=== PATIENT | female | born 1960 | race Caucasian/White ===

== ENCOUNTER 2025-06-16 10:26 | Inpatient (IN) | payer MEDICARE, SELFPAY ==
[2025-06-16] VITALS (20 sets, daily range): BP systolic 115–167; BP diastolic 51–96; PULSE 88–112; RESP 13–25; TEMP 36.6–36.9; O2SAT 90–98; BMI 29.5
--- NOTE | 2025-06-16 | PATH_ITS ---
[facility] Accession Number: [id number] No. of containers..01 Tissue . 01 Material submitted: . appendix - APPENDIX, APPENDECTOMY . 01 Diagnosis: APPENDIX, APPENDECTOMY: Acute suppurative appendicitis with perforation. No dysplasia or malignancy identified. [facility] 06/25/20251508 Local . 01 Electronically signed: . Hong Waldron MD, Pathologist NPI- [id number] . 01 Gross description: . Received in formalin with two patient identifiers, and appendix is a 6.5 cm long by 1.3 cm diameter, focally disrupted appendix. The stapled proximal margin is inked blue. The serosa is red-brown, dusky and hemorrhagic with scattered exudate. There is a 0.8 x 0.5 cm transmural defect (inked orange), 2 cm from the proximal margin. The wall is red-billingsley, hemorrhagic, and 0.3-0.6 cm thick. A discrete mass is not grossly identified. Fecaliths are not grossly identified. Portable Irrigation Operator sections to include en face margin, defect, and bisected tip are submitted in A1. ([id number]) /MRV 06/25/20251508 Local . 01 Pathologist provided ICD-10: K35.80 . 01 CPT . 771288 Specimen Comment: A courtesy copy of this report has been sent to [facility] Performed at: [address] [address], [place], [place] [id number] MD Hong Waldron MD Phone: [phone]
--- NOTE | 2025-06-16 11:54 | ED_ITS ---
HPI - Abdominal Pain General Chief Complaint: Abdominal Pain Stated Complaint: Flu, no bowel movements 5 days, [facility] Time Seen by Provider: 06/16/25 11:24 Source: patient Mode of arrival: Ambulatory History of Present Illness HPI narrative: This is a 65-year-old female presents emergency department due to nausea, vomiting, constipation for the last 5 days. States that initially 5 days ago she had an acute episode of vomiting as well as some intermittent fevers and chills. Since then she has noticed significant abdominal bloating and has not been able to have a bowel movement. She reports some nausea but is now able to take small amounts of p.o. fluids and food. Denies any fevers. Denies any abdominal surgeries. States that she is in no acute point tenderness but does report she feels generally distended and uncomfortable. Reports history of hypertension. Last ate yesterday evening. Related Data Allergies Allergy/AdvReac Type Severity Reaction Status Date / Time No Known Drug Allergies Allergy Verified 06/16/25 10:57 Review of Systems Review of Systems Narrative: GENERAL: Denies chills, fatigue, malaise, fever, sweats. HEENT: Denies sinus pain, ear pain, sore throat, difficulty swallowing, dizziness. RESPIRATORY: Denies dyspnea, cough, wheezing, hemoptysis, sputum. CARDIOVASCULAR: Denies chest pain, palpitations, orthopnea, edema, GASTROINTESTINAL: Reports nausea, vomiting, constipation, abdominal distention : Denies dysuria, frequency, incontinence, hematuria, urinary retention. MUSCULOSKELETAL: denies weakness, joint pain, or bony pain SKIN: Denies rash, skin lesions, or other NEUROLOGIC: Denies weakness, headache, numbness, change in speech, confusion, seizures, incoordination. PSYCHIATRIC: No concerning psychosocial issues. 12 point review of systems is negative except for those stated above Patient History Smoking Status: Never smoker Alcohol type: wine Exam Narrative Exam Narrative: GENERAL: Well-developed patient, in mild distress. HEAD: Atraumatic. Normocephalic. EYES: Pupils equal round and reactive. Extraocular motions intact. No scleral icterus. No injection or drainage. ENT: Nose without bleeding, purulent drainage. Throat without erythema, tonsillar hypertrophy or exudate. Airway patent. NECK: Trachea midline. Non tender EXTREMITIES: No edema or joint tenderness. NEURO: AOx3. SKIN: No rash or erythema of visible areas Abdomen: Generally distended, no significant point tenderness Initial Vital Signs Initial Vital Signs: Vital Signs Temperature 98 F 06/16/25 10:56 Pulse Rate 112 H 06/16/25 10:56 Respiratory Rate 20 06/16/25 10:56 Blood Pressure 167/96 H 06/16/25 10:56 Pulse Oximetry 97 06/16/25 10:56 Oxygen Delivery Method Room Air 06/16/25 10:56 Course Orders Ordered: ED Orders 06/16/25 11:30 Blood Culture Stat CBC Auto Diff [Complete Blood Count AUTO DIFF] Stat CMP [Comprehensive Metabolic Panel] Stat Lactate (Lactic Acid) Stat Procalcitonin Stat 06/16/25 12:04 CT abdomen pelvis w con Stat Discontinued Medications Piperacillin Sod/Tazobactam (Sod 4.5 gm/ Sodium Chloride) 100 mls @ 200 mls/hr IV NOW ONE Stop: 06/16/25 12:45 Vital Signs Vital signs: Vital Signs - 8 hr 06/16/25 10:56 Temperature 98 F Pulse Rate 112 H Respiratory Rate 20 Blood Pressure 167/96 H Pulse Oximetry 97 Oxygen Delivery Method Room Air MDM - Abdominal Pain Lab Data 06/16/25 11:30 06/16/25 11:30 Labs: Lab Results 06/16/25 Range/Units 11:30 WBC 13.0 H (4.5-11.0) X10^3/uL RBC 5.19 (4.0-5.2) X10^6/uL Hgb 17.1 H (12.0-16.0) g/dL Hct 49.6 H (36-46) % MCV 95.5 (80-100) fL MCH 32.9 (26-34) PG MCHC 34.5 (30-36) % RDW 12.5 (11.6-14.8) % Plt Count 344 (150-400) X10^3/uL Neut % (Auto) 80.1 H (50-75) % Lymph % (Auto) 9.3 L (25-40) % [place] % (Auto) 9.7 (3-14) % Eos % (Auto) 0.6 L (2-4) % Baso % (Auto) 0.3 (0-2) % Neut # (Auto) 02563 H (8560-2938) /uL Lymph # (Auto) 1200 (8827-4228) /uL [place] # (Auto) 1300 H (0-900) /uL Eos # (Auto) 100 (0-450) /uL Baso # (Auto) 0 (0-100) /uL Sodium 138 (137-145) mmol/L Potassium 3.6 (3.4-5.1) mmol/L Chloride 100 (98-107) mmol/L Carbon Dioxide 22 (22-32) mmol/L BUN 26 H (7-17) mg/dL Creatinine 0.82 (0.52-1.04) mg/dL Estimated GFR > 60 (>60) mL/min BUN/Creatinine Ratio 31.7 H (6-22) Glucose 118 H (70-99) mg/dL Lactate 1.2 (0.7-2.1) mmol/L Calcium 9.8 (8.4-10.2) mg/dL Total Bilirubin 1.0 (0.2-1.3) mg/dL AST 15 (14-36) IU/L ALT 14 (<35) IU/L Alkaline Phosphatase 88 (38-126) U/L Total Protein 7.8 (6.3-8.2) g/dL Albumin 4.2 (3.5-5.0) g/dL Globulin 3.6 (1.7-4.1) g/dL Albumin/Globulin Ratio 1.2 (1.0-2.8) Procalcitonin 0.261 (<0.5) ng/mL Imaging Data CT scan - abdomen/pelvis: Radiologist's Impression: [address] [address] [address] Scan Report Signed Patient: Tran Frances MR#: [id number] : 1960 Acct:[id number] Age/Sex: 65 / F Date of Service: 06/16/25 Loc: ED Accession Number: [id number] Procedure: CT abdomen pelvis w con Ordering Provider: Rashid Cruz PA-C PROCEDURE: CT ABDOMEN PELVIS W CON INDICATIONS: possible obstruction, abd pain, bloating TECHNIQUE: After the administration of intravenous contrast, axial sections acquired from the lung bases to the pubic symphysis. Coronal and sagittal reformats were performed. For radiation dose reduction, the following was used: automated exposure control, adjustment of mA and/or kV according to patient size. COMPARISON: None. FINDINGS: Image quality: Diagnostic. Lower Chest: Right basilar atelectasis is seen. Heart size is normal, no pericardial effusion. ABDOMEN: Liver: No solid mass. Suggestion of tiny cysts in anterior periphery of left hepatic lobe. Gallbladder: Numerous calcified stones are noted in dependent portion of gallbladder lumen. No gallbladder wall thickening. Biliary ducts: No biliary dilation. Pancreas: No ductal dilation. Spleen: Size is within normal limits. Adrenal Glands: No adrenal nodules. Kidneys and Ureters: No hydronephrosis. No solid mass. No complex renal cystic lesion which requires follow up. Stomach and Bowel: Significant mesenteric fat stranding involving right lower quadrant abdomen is seen. There is wall thickening involving terminal ileum and proximal ascending colon. No normal appearing appendix is visualized. There is extra luminal air and fluid collection seen in right lower quadrant measures up to 7.1 x 2.8 x 4 cm in size series 2, image 87 and series 4, image 116. No other area of abnormal bowel wall thickening. Peritoneum: No abnormal intraperitoneal fluid. No peritoneal free air. Ventral Wall: No significant ventral hernia. Abdominal Nodes: No retroperitoneal or mesenteric adenopathy by size criteria. Vessels: Aorta and inferior vena cava are normal in size. PELVIS: Pelvic Organs: Markedly bulky appearing uterus with lobulated contour and heterogeneous enhancement. Internal calcifications also noted. Finding is consistent with calcified uterine fibroids. Bladder: No bladder wall thickening, accounting for underdistention. Pelvic Nodes: No enlarged lymph nodes. Miscellaneous: No inguinal hernias are seen. Bones: No aggressive osseous abnormality. IMPRESSION: 1. Finding is suggestive of perforated acute appendicitis with developing abscess collection in right lower quadrant abdomen as described above. The abscess collection is surrounded by adjacent bowel loops and is not easily assessable. 2. No other area of abnormal bowel wall thickening. Mild fluid distension of small bowel loops concerning for low-grade ileus. No peritoneal free fluid or free air. 3. No obstructing renal stones or hydronephrosis. 4. Cholelithiasis without CT evidence of acute cholecystitis. 5. Large myomatous uterus. Findings were reported to ordering ER physician at the time of dictation. Dictated by: Steve Garcia M.D. on 06/16/2025 at 12:32 Approved by: Steve Garcia M.D. on 06/16/2025 at 12:43 [facility] Narrative Medical decision making narrative: ED course: This is a 65-year-old female presenting to the emergency department due to abdominal pain as well as nausea and vomiting for the last [address] scan showed findings suggestive of perforated acute appendicitis. Patient is given Zosyn. Blood cultures were obtained. White count 13. Dr. Graff of General surgery was contacted and he will arrange for surgery. Patient will be admitted under General surgery. Assistance very much appreciated. CC: Abdominal pain Complicating co-morbidities: Hypertension Data collected from: Previous notes Medical records reviewed: patient was seen in the walk-in clinic just prior to arrival with severe abdominal pain for the last 4 days with no bowel movement x5 days. As well as intractable nausea and vomiting x4 days. Differential considered, but not limited to: Appendicitis, cholelithiasis Exam documented above, pertinent findings include: Abdominal distention Lab Test results independently reviewed as above. Pertinent findings: White count of 13.0 Imaging studies independently reviewed: CT showed evidence of perforated appendicitis Scores Used: None MIPS Elements: None Consultations: None Treatments: Zosyn Re-evaluations: None Discussion: Discussed plan with the patient was comfortable with the plan Diagnosis: Acute appendicitis Disposition: see below, along with detailed discharge instructions that have been reviewed with patient as well as indications for ED re-evaluation and additional outpatient follow up Discharge Plan Departure Patient Disposition: Admitted to Surgery Clinical Impression: Acute appendicitis
--- NOTE | 2025-06-16 12:04 | DI.CT.S_ITS ---
PROCEDURE: CT ABDOMEN PELVIS W CON INDICATIONS: possible obstruction, abd pain, bloating TECHNIQUE: After the administration of intravenous contrast, axial sections acquired from the lung bases to the pubic symphysis. Coronal and sagittal reformats were performed. For radiation dose reduction, the following was used: automated exposure control, adjustment of mA and/or kV according to patient size. COMPARISON: None. FINDINGS: Image quality: Diagnostic. Lower Chest: Right basilar atelectasis is seen. Heart size is normal, no pericardial effusion. ABDOMEN: Liver: No solid mass. Suggestion of tiny cysts in anterior periphery of left hepatic lobe. Gallbladder: Numerous calcified stones are noted in dependent portion of gallbladder lumen. No gallbladder wall thickening. Biliary ducts: No biliary dilation. Pancreas: No ductal dilation. Spleen: Size is within normal limits. Adrenal Glands: No adrenal nodules. Kidneys and Ureters: No hydronephrosis. No solid mass. No complex renal cystic lesion which requires follow up. Stomach and Bowel: Significant mesenteric fat stranding involving right lower quadrant abdomen is seen. There is wall thickening involving terminal ileum and proximal ascending colon. No normal appearing appendix is visualized. There is extra luminal air and fluid collection seen in right lower quadrant measures up to 7.1 x 2.8 x 4 cm in size series 2, image 87 and series 4, image 116. No other area of abnormal bowel wall thickening. Peritoneum: No abnormal intraperitoneal fluid. No peritoneal free air. Ventral Wall: No significant ventral hernia. Abdominal Nodes: No retroperitoneal or mesenteric adenopathy by size criteria. Vessels: Aorta and inferior vena cava are normal in size. PELVIS: Pelvic Organs: Markedly bulky appearing uterus with lobulated contour and heterogeneous enhancement. Internal calcifications also noted. Finding is consistent with calcified uterine fibroids. Bladder: No bladder wall thickening, accounting for underdistention. Pelvic Nodes: No enlarged lymph nodes. Miscellaneous: No inguinal hernias are seen. Bones: No aggressive osseous abnormality. IMPRESSION: 1. Finding is suggestive of perforated acute appendicitis with developing abscess collection in right lower quadrant abdomen as described above. The abscess collection is surrounded by adjacent bowel loops and is not easily assessable. 2. No other area of abnormal bowel wall thickening. Mild fluid distension of small bowel loops concerning for low-grade ileus. No peritoneal free fluid or free air. 3. No obstructing renal stones or hydronephrosis. 4. Cholelithiasis without CT evidence of acute cholecystitis. 5. Large myomatous uterus. Findings were reported to ordering ER physician at the time of dictation. Dictated by: Steve Garcia M.D. on 06/16/2025 at 12:32 Approved by: Steve Garcia M.D. on 06/16/2025 at 12:43
[2025-06-16 12:06] LABS: Add Manual Diff / Slide Review NO; Hematocrit 49.6 % (36-46); Hemoglobin 17.1 g/dL (12.0-16.0); Lymphocytes Absolute Auto 1200 /uL (1100-4500); Mean Corpuscular HGB Conc 34.5 % (30-36); Mean Corpuscular Hemoglobin 32.9 PG (26-34); Mean Corpuscular Volume 95.5 fL (80-100); Platelet Count 344 X10^3/uL (150-400)
[2025-06-16 12:09] LABS: Lactate (Lactic Acid) 1.2 mmol/L (0.7-2.1)
[2025-06-16 12:10] LABS: Alanine Aminotransferase 14 IU/L (<35); Albumin 4.2 g/dL (3.5-5.0); Albumin Globulin Ratio 1.2 (1.0-2.8); Alkaline Phosphatase 88 U/L (38-126); Blood Urea Nitrogen 26 mg/dL (7-17); Calcium 9.8 mg/dL (8.4-10.2); Carbon Dioxide 22 mmol/L (22-32); Chloride 100 mmol/L (98-107); Estimated Glomerular Filt Rate > 60 mL/min (>60); Globulin 3.6 g/dL (1.7-4.1); Glucose 118 mg/dL (70-99); HEMOLYSIS < 15 (0-50); Potassium 3.6 mmol/L (3.4-5.1); Sodium 138 mmol/L (137-145); Total Protein 7.8 g/dL (6.3-8.2)
[2025-06-16 12:27] LABS: Procalcitonin 0.261 ng/mL (<0.5)
--- NOTE | 2025-06-16 13:08 | P.HP_ITS ---
History of Present Illness History of Present Illness Date Patient Seen: 06/16/25 Time Patient Seen: 13:08 Chief complaint: Flu, no bowel movements 5 days, [facility] Narrative: Patient being admitted from the emergency room with perforated appendicitis. CT scan demonstrates appendiceal perforation with abscess. WBC 13. Symptoms started on Saturday. Patient had recent hip and knee replacement surgery. She was started on IV Zosyn in the emergency room. Lapar[facility] She and her are visiting from [place]. [facility] Social History Smoking Status: Never smoker Meds Home Medications and Allergies Allergies Allergy/AdvReac Type Severity Reaction Status Date / Time No Known Drug Allergies Allergy Verified 06/16/25 10:57 Exam Vital Signs (past 8 hours): - 06/16/25 10:56 Temperature 98 F Pulse Rate 112 H Respiratory Rate 20 Blood Pressure 167/96 H Pulse Oximetry 97 Oxygen Delivery Method Room Air Oxygen Delivery Method Room Air Narrative Exam Narrative: Const General: healthy appearing, comfortable and no acute distress Orientation: alert and oriented x3 HENMT Ears: hearing grossly normal bilaterally Eyes Visual Escobar: normal visual escobar by confrontation Conjunctivae: conjunctivae normal Sclera: sclerae normal EOM: EOM intact bilaterally Resp Effort & Inspection: normal respiratory effort and able to speak in complete sentences Cardio Rate: regular rate GI Palpation: soft (NT) Extrem General: no pedal edema and no calf tenderness Objective Labs 06/16/25 11:30 06/16/25 11:30 Labs: Laboratory Results - last 24 hr 06/16/25 11:30 WBC 13.0 H RBC 5.19 Hgb 17.1 H Hct 49.6 H MCV 95.5 MCH 32.9 MCHC 34.5 RDW 12.5 Plt Count 344 Neut % (Auto) 80.1 H Lymph % (Auto) 9.3 L [place] % (Auto) 9.7 Eos % (Auto) 0.6 L Baso % (Auto) 0.3 Neut # (Auto) 01229 H Lymph # (Auto) 1200 [place] # (Auto) 1300 H Eos # (Auto) 100 Baso # (Auto) 0 Sodium 138 Potassium 3.6 Chloride 100 Carbon Dioxide 22 BUN 26 H Creatinine 0.82 Estimated GFR > 60 BUN/Creatinine Ratio 31.7 H Glucose 118 H Lactate 1.2 Calcium 9.8 Total Bilirubin 1.0 AST 15 ALT 14 Alkaline Phosphatase 88 Total Protein 7.8 Albumin 4.2 Globulin 3.6 Albumin/Globulin Ratio 1.2 Procalcitonin 0.261 Assessment & Plan Assessment and plan (1) Perforated appendicitis: Status: Acute Plan Plan laparoscopic appendectomy. Possible open. Drain likely. The risks, benefits and options regarding the procedure were explained to the patient in detail. Risk discussion included but not limited to: bleeding, perforation, drain, abscess, open incision, colectomy. The patient was encouraged to ask questions and they were answered to their satisfaction. The patient understands and is agreeable to proceed. Time-Based Coding :: [TOTAL MINUTES] spent with patient and on the chart (including review of chart, obtaining history, exam, reviewing outside data, placing orders, documenting exam and treatment plan, and counseling patient) on [DATE]. 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
[2025-06-16] MEDS: SODIUM CHLORIDE 0.9% 500 ML 1000 ML IV (13:11)
[2025-06-16] MEDS: PIPERACILLIN/TAZO 4.5 GM in SODIUM CHLORIDE 0.9% 100 ML IV (13:11)
[2025-06-16 13:37] LABS: Culture Indicated Urine Specimen Cultured
--- NOTE | 2025-06-16 14:20 | PC.NURSE ---
Pt left for OR, report given to HYDROGENATION OPERATOR & Chava @ [facility] # [phone]
--- NOTE | 2025-06-16 15:39 | SUR.OPER ---
Supine on padded OR bed, head on pillow, left arm padded and tucked at side, right arm on armboard, legs uncrossed, safety belt at thigh, tape over blanket over lower legs .
--- NOTE | 2025-06-16 16:40 | SUR.OPER ---
Supine on padded OR bed, head on pillow, right arm padded and tucked at side, left arm out on armboard legs uncrossed, safety belt at thigh, tape over blanket over lower legs .
--- NOTE | 2025-06-16 17:15 | PM.OP.1 ---
Operative Date/Time/Diagnoses Date of procedure: 06/16/25 Time of procedure: 17:16 Pre-op diagnosis: Perforated appendicitis with abscess Post-op diagnosis: same Procedure & Clinicians Procedure: Laparoscopic appendectomy with drain Same procedure(s) as scheduled: Yes Indications: 65yo F, presented to ED, CT demonstrated perforated appendicitis with abscess. Patient had recent hip and knee replacement. She desired operative management over IR drain and delayed appendectomy to reduce risk to her hardware. Surgeon: Narendra Graff Assisted?: Yes Data Analysis Intern: Irving Avila Anesthesia Type: General Operative Notes Findings: Perforation in mid appendix with abscess cavity beneath ileal mesentery. Incidental note of extensive uterine fibroids and a large right ovarian cyst. Closure Type: primary Specimen(s): other (appendix) Applied: drain(s) Estimated Blood Loss (mL): 10 Blood products transfused: none Procedure in detail: After informed consent and satisfactory general endotracheal anesthesia, the abdomen was prepped and draped in the usual sterile manner. The patient received appropriate preoperative antibiotics and DVT prophylaxis. Surgical time-out was performed with all team members in agreement. The pneumoperitoneum was established to a pressure of 15 mmHg with carbon dioxide gas using the Astudillo direct trocar cutdown technique via an infraumbilical incision. An 0 Vicryl yzruln-cj-[id number] suture was placed in the umbilical fascia. The 5 mm 30 degree lens was inserted and no trauma secondary to the trocar insertion was noted. We then placed a suprapubic and left lower quadrant 5 mm trocar under direct vision. Due to distended bowel we had to place an additional 5 mm trocar in the right lower quadrant to aid dissection. Incidental note was made of extensive uterine fibroids and a large right ovarian cyst. The small bowel was extensively dilated and an orogastric tube was placed per anesthesia. The terminal ileum was adherent to the inflammatory process in the right lower quadrant but we were able to bluntly mobilize this medially and in doing so entered the abscess cavity which produced copious amount of green purulence. This was all suctioned dry. The appendix was noted to be ruptured in the midportion and a large fecalith was removed with the laparoscopic spoon. We were able to mobilize the appendix bluntly and then control the mesoappendix with the LigaSure cautery device with excellent hemostasis. The base of the appendix was uninvolved and it was controlled using a laparoscopic LANDRY stapler using a blue load and this controlled the base of the appendix with confidence. We then irrigated the abscess cavity with copious amounts of sterile saline solution and this was suctioned dry. I brought a 15 [place] Junaid channel drain through the suprapubic incision and coursed this into the abscess cavity and into the pelvis. This was secured to the skin with a 2-0 nylon. The appendix had been placed into an endo-pouch and removed. The trocars were removed and there was no bleeding noted at the trocar sites. The pneumoperitoneum was released. The 0 Vicryl gpdwyb-sk-cenoh suture was tied in the umbilical fascia. The local was 60 cc of 0.25% Marcaine with epinephrine. We performed bilateral TAP blocks injecting 25 cc into the transversus abdominis musculature bilaterally. We used the remainder of the local in the skin and subcutaneous tissues for a total 60 cc. A drain dressing was applied to the drain exit site. The skin incisions were closed using 4-0 Monocryl in a subcuticular manner. Dermabond glue was applied as a final dressing. The estimated blood loss was minimal. The instrument sponge and needle counts were all correct x2. The patient tolerated the procedure well was extubated in the operating room and transported to the recovery area in stable condition. Complications: none Post-operative Condition: stable Disposition: PACU Plan for aftercare: PACU then floor
[2025-06-16] MEDS: BUPivacaine 0.25% W/ EPI (PF) 30 ML VIAL 60 ML INJ (17:19)
[2025-06-16] MEDS: ONDANSETRON 4 MG/2 ML INJ IV ×2 (17:40→23:49)
--- NOTE | 2025-06-16 19:05 | PC.NURSE ---
Patient is alert and oriented x4, admitted for lap appe, given dilaudid down in pacu. Up to floor. Pain with movement but otherwise has been fine. Resting comfortably. Will be due for pain medications soon.
[2025-06-16] MEDS: PIPERACILLIN/TAZO 3.375 GM in SODIUM CHLORIDE 0.9% 100 ML IV (19:49)
[2025-06-16] MEDS: LACTATED RINGERS 1,000 ML 150 ML IV ×2 (20:10→23:31)
[2025-06-16] MEDS: HEPARIN 5,000 UNIT/ML VIAL 5000 UNIT SUBCUT (21:16)
[2025-06-16] MEDS: MELATONIN 3 MG TABLET 18 MG PO (22:39)
[2025-06-16] MEDS: PANTOPRAZOLE 40 MG VIAL IV (23:49)
[2025-06-17] MEDS: PIPERACILLIN/TAZO 3.375 GM in SODIUM CHLORIDE 0.9% 100 ML IV ×3 (04:23→20:26)
[2025-06-17 05:39] VITALS: O2SAT 92
[2025-06-17] MEDS: LACTATED RINGERS 1,000 ML 150 ML IV ×3 (06:43→19:16)
[2025-06-17] MEDS: ONDANSETRON 4 MG/2 ML INJ IV ×2 (06:57→22:24)
--- NOTE | 2025-06-17 07:16 | P.PN_ITS ---
Subjective Subjective Date Patient Seen: 06/17/25 Time Patient Seen: 07:16 Interval history: Emesis last night, small bowel dilated at surgery, ileus secondary to perf appy Exam Vital Signs (past 8 hours): - 06/17/25 05:39 Pulse Oximetry 92 Oxygen Delivery Method Nasal Cannula Oxygen Flow Rate 2 Fraction of Inspired Oxygen 28 Fraction of Inspired Oxygen 28 SaO2/FiO2 Ratio 328 Oxygen Delivery Method Nasal Cannula Oxygen Flow Rate 2 Narrative Exam Narrative: ABD: distended, +tympany, drain purulent as expected, tenderness appropriate for postop Objective Labs 06/16/25 11:30 06/16/25 11:30 Labs: Laboratory Results - last 24 hr 06/16/25 06/16/25 11:30 13:18 WBC 13.0 H RBC 5.19 Hgb 17.1 H Hct 49.6 H MCV 95.5 MCH 32.9 MCHC 34.5 RDW 12.5 Plt Count 344 Neut % (Auto) 80.1 H Lymph % (Auto) 9.3 L Donley % (Auto) 9.7 Eos % (Auto) 0.6 L Baso % (Auto) 0.3 Neut # (Auto) 33364 H Lymph # (Auto) 1200 Donley # (Auto) 1300 H Eos # (Auto) 100 Baso # (Auto) 0 Sodium 138 Potassium 3.6 Chloride 100 Carbon Dioxide 22 BUN 26 H Creatinine 0.82 Estimated GFR > 60 BUN/Creatinine Ratio 31.7 H Glucose 118 H Lactate 1.2 Calcium 9.8 Total Bilirubin 1.0 AST 15 ALT 14 Alkaline Phosphatase 88 Total Protein 7.8 Albumin 4.2 Globulin 3.6 Albumin/Globulin Ratio 1.2 Procalcitonin 0.261 Urine RBC 0-1/hpf Urine WBC 1-5/hpf Ur Squamous Epith Cells 1-5 /hpf Urine Bacteria None seen Hyaline Casts 1-5/lpf Urine Mucus 2+ H Ur Culture Indicated? Specimen cultured Vol Urine Centrifuged 10ml (spun) PFSH Social History household members: spouse Smoking Status: Never smoker alcohol intake: current Assessment & Plan Assessment and plan (1) Perforated appendicitis: Status: Acute (2) Intra-abdominal abscess: Status: Acute Plan POD#1 lap appy, known perforation, drain placed in abscess Continue IV abx, drain Ileus, try mylicon, may need NGT if emesis Time-Based Coding :: [TOTAL MINUTES] spent with patient and on the chart (including review of chart, obtaining history, exam, reviewing outside data, placing orders, documenting exam and treatment plan, and counseling patient) on [DATE]. Quality VTE Deep Vein Thrombosis/Pulmonary Embolism Present on Admission: No IH PROFEE Salsa Dance Instructor Document charge(s): Yes Charge Codes Subsequent inpatient/observation care: [id number]
[2025-06-17 08:04] VITALS: BP 145/80; PULSE 83; RESP 17; TEMP 37.3; O2SAT 96
[2025-06-17] MEDS: LOSARTAN 50 MG TABLET PO (08:33)
[2025-06-17] MEDS: PANTOPRAZOLE 40 MG VIAL IV (08:33)
[2025-06-17] MEDS: SIMETHICONE 80 MG TABLET PO ×4 (08:33→20:27)
[2025-06-17] MEDS: HEPARIN 5,000 UNIT/ML VIAL 5000 UNIT SUBCUT ×2 (08:33→20:26)
--- NOTE | 2025-06-17 14:06 | CM.DANOTE ---
DCP Assessment note Brief pt is a 65yo F here visiting from [place] with her spouse, admitted with appendicitis. pt is POD1 lap appy, has a drain, ileus, needing IV abx at this time. NAPHTHOL SOAPING MACHINE OPERATOR reviewed EMR. per surgeon note, DCP timeline unknown. here at least until tomorrow with drain/IV abx. NAPHTHOL SOAPING MACHINE OPERATOR attempted to meet with pt in room x2, ambulating halls with IV abx pole and PCT. per chart review/RN report, no identified DCP needs at this time. P: anticipate home when medically stable with OP f/u as needed and spouse support back to RV. no identified barriers to safe DC to RV at this time. will continue to follow as needed for DCP Coordination RENETTA Culp Discharge Planning/Care Management CM Discharge Assessment Start: 06/16/25 14:08 Freq: Status: Active Protocol: Document 06/17/25 14:05 (Rec: 06/17/25 14:06 [email or web address]) Discharge Planning Assessment Assigned Discharge RENETTA Morrison Wastewater Treatment Engineer Provider [place] PCP Insurance Medicare Insurance Comment AARP secondary DPOA/Assigned Mars, partner Designee Name Contact Information [phone] Advance Directives? No History Provided By Patient Prior Living RV Arrangements Comment lives in a home in [place], here visiting staying in her RV while on vacation Household Members spouse Type of Drives own vehicle transporation used prior to admit Independent with ADL Yes 's Is patient alert and Yes oriented? Discharge Plan Home Referrals Initiated None needed Review Status In Process Please Provide Date 06/17/25 Initial DC Assessment Was Performed Next Review Type Continued Stay Review
[2025-06-17 14:09] VITALS: BP 139/76; PULSE 83; RESP 16; TEMP 36.6; O2SAT 96
--- NOTE | 2025-06-17 16:56 | PC.NURSE ---
[address] DR GAGE AT BEDSIDE DISCUSSING POC WITH PATIENT. AWARE OF PATIENT WITH NO GAS AND CONTINUED C/O ABDOMINAL DISTENTION. MD STATES PLAN IS TO HOLD OF ON NGT PLACEMENT AT THIS TIME AND GIVE PATIENT MORE TIME FOR BOWELS TO MOVE. NO VOMITING NOTED. PATIENT WALKED 3-4 LAPS AROUND UNIT THROUGHOUT SHIFT.
[2025-06-17 19:41] VITALS: BP 143/67; PULSE 80; RESP 18; TEMP 37.4; O2SAT 94
[2025-06-18] MEDS: LACTATED RINGERS 1,000 ML 150 ML IV ×4 (01:34→23:37)
[2025-06-18] MEDS: PIPERACILLIN/TAZO 3.375 GM in SODIUM CHLORIDE 0.9% 100 ML IV ×3 (03:46→20:39)
--- NOTE | 2025-06-18 07:23 | DI.RAD.S_ITS ---
PROCEDURE: XR ABDOMEN MIN 2V INDICATIONS: abd distention; ?sbo vs ileus; ?stool burden TECHNIQUE: 2 views of the abdomen were acquired. COMPARISON: None. FINDINGS: Surgical changes and devices: None. Bowel: Air distended bowel loops noted throughout abdomen with a few air-fluid levels. No gross pneumoperitoneum. Soft tissues: No masses; visualized solid organ contours appear normal in size. No suspicious abdominal calcifications. Bones: No suspicious bony abnormalities. IMPRESSION: Finding is suggestive of high-grade distal small-bowel obstruction. No gross pneumoperitoneum. Dictated by: Steve Garcia M.D. on 06/18/2025 at 8:23 Approved by: Steve Garcia M.D. on 06/18/2025 at 8:24
--- NOTE | 2025-06-18 07:50 | P.PN_ITS ---
Subjective Subjective Date Patient Seen: 06/18/25 Time Patient Seen: 07:50 Interval history: Bilious emesis last night No flatus/stool Exam Vital Signs (past 8 hours): - 06/18/25 00:00 Oxygen Delivery Method Room Air Fraction of Inspired Oxygen 28 SaO2/FiO2 Ratio 328 Oxygen Delivery Method Room Air Oxygen Flow Rate 0 Narrative Exam Narrative: Resp Effort & Inspection: normal respiratory effort and able to speak in complete sentences Cardio Rate: regular rate GI Palpation: soft, distended, +tympany, incisions CDI, drain purulent as expected Extrem General: no pedal edema and no calf tenderness Objective Labs 06/16/25 11:30 06/16/25 11:30 [facility] Social History household members: spouse Smoking Status: Never smoker alcohol intake: current Assessment & Plan Assessment and plan (1) Intra-abdominal abscess: Status: Acute (2) Perforated appendicitis: Status: Acute Plan Abd distention, emesis last night Check AXR May need NGT Ileus vs SBO Continue IV abx for abscess, perf appy Time-Based Coding :: [TOTAL MINUTES] spent with patient and on the chart (including review of chart, obtaining history, exam, reviewing outside data, placing orders, documenting exam and treatment plan, and counseling patient) on [DATE]. 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
[2025-06-18 08:00] VITALS: BP 153/81; PULSE 79; RESP 19; TEMP 37.1; O2SAT 93
[2025-06-18] MEDS: SIMETHICONE 80 MG TABLET PO ×3 (08:20→17:04)
[2025-06-18] MEDS: LOSARTAN 50 MG TABLET PO (08:21)
[2025-06-18] MEDS: PANTOPRAZOLE 40 MG VIAL IV (08:22)
[2025-06-18] MEDS: HEPARIN 5,000 UNIT/ML VIAL 5000 UNIT SUBCUT ×2 (08:22→20:49)
[2025-06-18 10:17] LABS: Add Manual Diff / Slide Review NO; Hematocrit 41.3 % (36-46); Hemoglobin 14.2 g/dL (12.0-16.0); Lymphocytes Absolute Auto 1600 /uL (1100-4500); Mean Corpuscular HGB Conc 34.3 % (30-36); Mean Corpuscular Hemoglobin 33.2 PG (26-34); Mean Corpuscular Volume 96.6 fL (80-100); Platelet Count 326 X10^3/uL (150-400)
--- OUTSIDE RECORDS SUMMARY | 2025-06-18 15:19 | XMS_ITS | Data Portability ---
Author Organization [facility], [facility] Address [address] [place] [address] Assessment Encounter Date Assessment Date Assessment LastModified by Organization Details LastModified Time 11/17/2024 11/17/2024 At this point this patient has end-stage arthritis of the left hip(s). Patient has loss of hip function secondary to osteoarthritis which interferes with the ability to carry out age-appropriate activities of daily living and/or their demands of employment. We went over treatment options which include non-operative and operative. We talked about continued non-operative treatment including continued medication, injections, PT, and observation. We talked about total hip replacement as it pertains to the diagnosis and all the risks including but not limited to infection, nerve or vascular damage, instability, fracture, leg-length inequality, and blood clot/PE. The patient feels like the hip(s) are affecting their quality of life. The patient wishes to proceed with surgery. The next step is to send for pre-op clearance to see if they are a surgical candidate Outside x-rays: X-rays of the hip were taken at an outside facility and reviewed by me. These show obvious arthritic changes of the affected joint. Bone on bone joint space narrowing is noted. Grade IV changes are noted. Not available 11/17/2024 15:19:58 01/05/2025 01/05/2025 At this point this patient has end-stage arthritis of the right knee(s). We went over treatment options which include non-operative and operative. We talked about continued non-operative treatment including continued medication, injections, PT, and observation. We talked about muscle sparing total knee replacement as it pertains to the diagnosis and all the risks including but not limited to infection, nerve or vascular damage, instability, pin site fracture from robotic application, stiffness, and blood clot/PE. The patient feels like the knee(s) are affecting their quality of life. The patient wishes to proceed with surgery. The next step is to send for pre-op clearance to see if they are a surgical candidate Outside x-rays: X-rays of the knee were taken at an outside facility and reviewed by me. These show obvious arthritic changes of the affected joint. Bone on bone joint space narrowing is noted. Grade IV. changes are noted with a varus deformity. Not available 01/05/2025 15:30:12 Plan of Treatment Reminders Order Date Submit Date Provider Last Modified By Organization Details Last Modified Time Details Appointments None record ed. Lab None record ed. Referral None record ed. Procedures None record ed. Surgeries None record ed. Imaging None record ed. Medication Orders None record ed. Patient TargetsNo targets recorded. Patient InstructionsNo instructions recorded. Reason for Referral None Reported. Results Created Date Observation Date Name Description Value Unit Range Abnormal Flag Note LastModifiedBy Organization Detail LastModifiedTime 01/12/20 25 01/04/2025 XR, pelvi s, 1 or 2 view No observ ation record ed. [email or web address] [facility] [address], [place], [address], 01/11/2025 16:03:14 03/09/20 25 03/09/2025 XR, knee, 1 or 2 view No observ ation record ed. [email or web address] [facility] [address], [place], [address], 03/10/2025 17:53:14 Result Notes None recorded. Problems Name Problem SNOMED Code Status Onset Date Resolution Date Notes Provider Name and Address Organization Details Recorded Time Osteoarthri tis of left hip joint 5276552577727 08 Active 2024 Byron Barnett MD [address], [place], [address] , [facility] 04/22/202 5 15:19:59 Osteoarthri tis of right knee joint 1366807107337 00 Active 2024 Byron Barnett MD [address],[facility] [address], [place], [address], [facility] 15:30:13 Problem Notes None recorded. Procedures Surgical History Date Name Laterality Status Provider Name and Address Organization Details Recorded Time 2 varicose vein operation completed [facility], [facility] 11/17/2024 16:00:16 endoscopy of kidney completed [facility], [facility] 11/17/2024 15:59:46 Imaging Results None recorded. Procedure Notes None recorded. Medical Equipment None Reported. Allergies No known drug allergies Medications Name Sig Start Date Stop Date Status Note LastModified by Organization Details LastModified Time cyclobenzapr ine 10 mg tablet TAKE 1 TABLET 3 TIMES A DAY BY ORAL ROUTE NEEDED. active Not Available Not Available No t Available meloxicam 15 mg tablet TAKE 1 TABLET BY MOUTH EVERY DAY active Not Available Not Available No t Available aspirin 81 mg tablet,delay ed release TAKE 1 TABLET BY MOUTH TWICE A DAY active Not Available Not Available No t Available tramadol 50 mg tablet TAKE 2 TABLETS BY MOUTH EVERY 6 HOURS NEEDED active Not Available Not Available No t Available acetaminophe n 500 mg tablet TAKE 2 TABLETS BY MOUTH 3 TIMES A DAY active Not Available Not Available Not Available hydromorphon e 2 mg tablet TAKE 1 TABLET BY MOUTH EVERY 4 HOURS active Not Available Not Available No t Available ondansetron 4 mg disintegrati ng tablet PLACE 2 TABLETS BY TRANSLINGUA L ROUTE TWICE A DAY NEEDED active Not Available Not Available No t Available oxycodone 5 mg tablet TAKE 1-2 TABLETS BY MOUTH EVERY 4-6 HOURS NEEDED FOR PAIN active Not Available Not Available No t Available olmesartan 20 mg tablet TAKE 1 TABLET BY MOUTH EVERY DAY active Not Available Not Available No t Available tranexamic acid 650 mg tablet TAKE 1 TABLET BY MOUTH TWICE A DAY active Not Available Not Available No t Available Vitals None Recorded Social History None recorded. Functional Status None recorded. Mental Status None recorded. Family History Nothing Reported. Medical History Condition Response Cancer Y Arthritis Y Hypertension Y Gynecological HistoryNo gynecological history recorded. Obstetrics History GPAL:G 0 P 0 0 0 0 Past Encounters Encounter ID Performer Location Encounter Start Date Encounter Closed Date Diagnosis/Indication Diagnosis SNOMED-CT Code Diagnosis ICD10 Code Diagnosis IMO Codes Diagnosis Note [id number] Byron Barnett MD Main Office [address] [place] [address] 11/17/2024 15:13:30 11/17/2024 15:20:16 Osteoarthritis of left hip joint [id number] 32495 M16.12 [id number] Byron Barnett MD Main Office [address] [place] [address] 01/05/2025 14:46:17 01/05/2025 15:30:33 Osteoarthritis of right knee joint [id number] 94023 M17.11 [id number] Health Concerns Section Related Observation LastModified by Organization Detai ls LastModified Time None Recorded Concern Status LastModified by Organization Details LastModified Time None Recorded Advance Directives Directive None Recorded Payers Insurance Date Sequence Insurance Name Policy Number Policy Xie Covered Member ID Xie Member ID Guarantor Name 01/05/2025 2 AARP (MEDICARE SUPPLEMENT) Tran Frances [id number] Tran Frances 01/05/2025 1 [place] Tran Frances [id number] Tran Frances Notes Date Note Type Note Provider Name and Address Organization Details Recorded Time 11/17/2024 text/html Patient is a 64 yo female who presents for evaluation of left hip pain. Patient reports pain for multiple years. The pain is described as sharp and is as high as a 9 out of 10. The pain is located in the groin. The pain radiates down the leg. Patient reports no specific injury. Reports stairs and walking makes the pain worse. rest helps to alleviate the pain. Prior treatments include rest, medication, and PT which has failed to helped permanently. Patient admits feelings of instability. Patient denies ability to walk more than a quarter mile without pain. Patient reports no focal numbness or parasthesias distally. Sleep is interrupted. The patient feels like this pain is affecting their quality of life. Byron Barnett MD [address], [place], [address], [facility] 11/17/2024 15:20:13 01/05/2025 text/html Patient is a 64 yo female who presents for evaluation of right knee pain. Patient reports pain for 2 years. The pain is described as sharp and is as high as a 9 out of 10. The pain does not radiate up or down the leg. Patient reports no specific injury. Pain is mostly in the medial part of the knee. Reports stairs and walking makes the pain worse. rest helps to alleviate the pain. Prior treatments include medication, PT, which has failed to helped permanently. Patient reports mild swelling. The patient admits mechanical symptoms. Patient admits feelings of instability. Patient reports no focal numbness or parasthesias distally. Patient admits sleep is interrupted. The patient feels like their quality of life is affected. Byron Barnett MD [address],[facility] [address], [place], [address], [facility], [facility] 01/05/2025 15:30:30 OBGyn Episode No OBEpisode recorded.
--- OUTSIDE RECORDS SUMMARY | 2025-06-18 15:19 | XMS_ITS | Data Portability ---
Author Organization [facility] [place] Address [address] [place] [address] Care Team Providers Care Mounter Hand Name Role Phone RENATE EMANUEL Primary Care Provider [phone] Assessment Encounter Date Assessment Date Assessment LastModified by Organization Details LastModified Time 10/08/2022 10/08/2022 PATIENT IS HERE FOR TO DISCUSS FINDINGS OF THE DIAGNOSTIC VENOUS DPX-W-R THAT WAS PERFORMED ON 10/08/2022 WELL TO OBTAIN DETAILED INFORMATION REGARDING THEIR CUSTOM TREATMENT PLAN DESIGNATED BY DR. MARQUEZ. TREATMENT PLAN IS BASED OFF PT S PATHOLOGIC ULTRASOUND FINDINGS COUPLED WITH PHYSICAL EXAM. PATIENT DENIES CHANGES TO LOWER EXTREMITY SX S OR EXAM WITHIN THE INTERIM. PT HAS NO NEW COMPLAINTS TODAY. Not available 10/09/2022 05:04:16 Plan of Treatment Reminders Order Date Submit Date Provider Last Modified By Organization Details Last Modified Time Details Appointments None recorded. Lab None recorded. Referral None recorded. Procedures injection, sclerosing solution, single vein (PROC) 2022 023 [email or web address] Not available 5 08:36:38 Surgeries STAB PHLEBECTOMY OF VARICOSE VEINS, ONE EXTREMITY (SURG) 2022 023 [id number] Not available 5 05:31:43 Imaging US, duplex, venous, extremity, complete 2022 023 ASUNCION Not available 3 20:16:43 Medication Orders None recorded. Patient TargetsNo targets recorded. Patient Instructions Encounter Date Encounter Id Patient Instructions Last Modified By Organization Details Last Modified Time 10/26/2022 [id number] F/UP: 1WK POST-V T CHECK WITH DOC, PT'S NEXT TX WILL REQUIRE AMB PHLEB OF THE LEFT LEG. Not available 10/26/2022 16:55:21 Reason for Referral None Reported. Results Created Date Observation Date Name Description Value Unit Range Abnormal Flag Note LastModifiedBy Organization Detail LastModifiedTime 10/09/19 23 10/08/2022 US, duple x, venou s, lower extre mity, compl ete No observ ation record ed. [id number] Not Available 01/11/2023 03:45:46 10/09/19 23 10/08/2022 US, duple x, venou s, extre mity, compl ete No observ ation record ed. [id number] Not Available 01/11/2023 03:45:48 11/08/19 23 11/07/2022 US, duple x, venou s, lower extre mity, unila teral No observ ation record ed. [id number] [address] [facility] [address], [place], [address], 01/11/2023 03:46:54 Result Notes None recorded. Problems Name Problem SNOMED Code Status Onset Date Resolution Date Notes Provider Name and Address Organization Details Recorded Time Chronic peripheral venous hypertensio n 104715472 Active 2022 Carmelina Marquez MD [address] [place] [address], [address], [place], [address], [facility] 3 19:00:02 Pain in right lower limb 168493274 Active 2022 [place] [address], [place], [address], [facility] 3 19:00:06 Pain in left lower limb 518067536 Active 2022 [place] [address], [place], [address], [facility] 3 19:00:11 Pain due to varicose veins of lower extremity 199222795 Active 2022 [place] [address], [place], [address], [facility] 3 19:00:18 Varicose veins of lower limb co-occurren t with edema 608820634 Active 2022 Carmelina Marquez MD [facility] [address], [place], [address], [facility] 3 19:00:24 Venous stasis edema of bilateral lower limbs 4245319313928 9106 Active 2022 Carmelina Marquez MD [facility] [address], [place], [address], [facility] 3 19:00:32 Lymphedema of bilateral lower limbs 3600513370164 9101 Active 2022 Carmelina Marquez MD [address] [place] [address],[address], [place], [address], [facility] 3 04:58:48 Varicose veins of lower extremity 53938453 Active 2022 Rolo Wren DO [address] [place] [address],[address], [place], [address], [facility] 3 18:58:17 Problem Notes None recorded. Procedures Surgical History Date Name Laterality Status Provider Name and Address Organization Details Recorded Time 3 Ultrasound Lower Extremity Vein Post-[place] [address], [place], [address], [facility] 12/09/2022 22:17:20 3 Ultrasound Lower Extremity Vein [place] [address], [place], [address], [facility] 12/30/2022 18:57:47 Imaging Results None recorded. Procedure Notes None recorded. Medical Equipment None Reported. Allergies No known drug allergies Medications Name Sig Start Date Stop Date Status Note LastModified by Organization Details LastModified Time fluorouracil 5 % topical cream APPLY TOPICALLY TO AFFECTED AREAS AT NIGHT. WASH OFF IN THE MORNING. USE FOR 2 WEEKS THEN ALLOW TO HEAL FOR 2 WEEKS. THEN USE FOR ANOTHER 2 WEEKS active Not Available Not Available No t Available triamcinolon e acetonide 0.1 % topical ointment APPLY TO AREA TOPICALLY WITH FLUOROURACI L REACTION 1-2 TIMES DAILY FOR NO MORE THAN TWO WEEKS. NOT FOR USE ON FACE. active Not Available Not Available No t Available olmesartan 5 mg tablet TAKE 2 TABLETS BY MOUTH DAILY active Not Available Not Available Not Available olmesartan 20 mg tablet TAKE 1 TABLET BY MOUTH DAILY active Not Available Not Available Not Available Vitals Date Recorded Body height Body mass index (BMI) Body weight Provider Name and Address Organization Details Last Updated DateTime 10/08/2022 175.26 cm 29.5 kg/m2 61695.47 g Aneta Painter [facility] 10/08/2022 14:29:28 Social History Question Answer Notes LastModified by [employer] Details LastModified Time Tobacco Smoking Status Never Smoker Aneta merida [facility] 10/08/2022 14:29:38 How Much Tobacco Do You Chew? None [email or web address] Information not available 10/08/2022 Last Dental Exam 08/10/2022 Inform ation not available 10/08/2022 Are You On Disability Or Applying For It? No [email or web address] Information not available 10/08/2022 Employment Status Retired [email or web address] Information not available 10/08/2022 Last Day Of Work 04/01/2008 [email or web address] Inform ation not available 10/08/2022 What Was The Date Of Your Most Recent Tobacco Screening? 10/08/2022 Information not available 11/07/2022 How Much Tobacco Do You Smoke? No [email or web address] Information not available 10/08/2022 Sex: Unknown Functional Status Question Answer Note LastModified by [employer] Details LastModified Time Do you use any illicit or recreational drugs? No [email or web address] Information not available 10/08/2022 What is your level of alcohol consumption? Moderate [email or web address] Information not available 10/08/2022 Do you or have you ever used smokeless tobacco? Never used smokeless tobacco [email or web address] Information not available 10/08/2022 What is your occupation? [employer] [email or web address] Information not available 10/08/2022 Mental Status None recorded. Family History Relationship Description Onset Age of this Age Resolved Age Notes LastModified by Organization Details LastModified Time Father No current problems or disability varico se veins [email or web address] Not available 09/13/2022 13:23:59 Mother No current problems or disability varico se veins [email or web address] Not available 09/13/2022 13:24:06 Medical History Condition Response Hypertension Y Gynecological HistoryNo gynecological history recorded. Obstetrics History GPAL:G 0 P 0 0 0 0 Past Encounters Encounter ID Performer Location Encounter Start Date Encounter Closed Date Diagnosis/Indication Diagnosis SNOMED-CT Code Diagnosis ICD10 Code Diagnosis IMO Codes Diagnosis Note [id number] Carmelina Marquez MD [facility] [address] [place] [address] 09/13/2022 12:47:38 10/02/2022 07:07:19 Chronic peripheral venous hypertension 993770886 I87.323 VASCULE RA SAMPLES X 2 BOXES GIVEN TODAY== ======= RX TO [place] VASCUALR GIVEN FOR CLASS 1, (20-30 MMHG) THIGH HIGH, CLOSED TOE==== =====FLORENTINO NUE CONSERVATI VE MEASURES INCLUDING MEDICAL GRADE COMPRESSIO N AND BEGIN VASOTONIC MEDICATION DIRECTED WELL OBTAIN DIAGNOSTIC VENOUS DPX-W-R. Pain in ri ght lower limb [id number] M79.604 VASCULE RA SAMPLES X 2 BOXES GIVEN TODAY== ======= RX TO [place] VASCUALR GIVEN FOR CLASS 1, (20-30 MMHG) THIGH HIGH, CLOSED TOE==== =====[place] NUE CONSERVATI VE MEASURES INCLUDING MEDICAL GRADE COMPRESSIO N AND BEGIN VASOTONIC MEDICATION DIRECTED WELL OBTAIN DIAGNOSTIC VENOUS DPX-W-R. Pain in le ft lower limb 143341398 M79.605 VASCULE RA SAMPLES X 2 BOXES GIVEN TODAY== ======= RX TO [place] VASCUALR GIVEN FOR CLASS 1, (20-30 MMHG) THIGH HIGH, CLOSED TOE==== =====[place]OR[place] NUE CONSERVATI VE MEASURES INCLUDING MEDICAL GRADE COMPRESSIO N AND BEGIN VASOTONIC MEDICATION DIRECTED WELL OBTAIN DIAGNOSTIC VENOUS DPX-W-R. Pain due t o varicose veins of lower extremity 538273559 I83.819 VASCULE RA SAMPLES X 2 BOXES GIVEN TODAY== ======= RX TO [place] VASCUALR GIVEN FOR CLASS 1, (20-30 MMHG) THIGH HIGH, CLOSED TOE==== =====FLORENTINO NUE CONSERVATI VE MEASURES INCLUDING MEDICAL GRADE COMPRESSIO N AND BEGIN VASOTONIC MEDICATION DIRECTED WELL OBTAIN DIAGNOSTIC VENOUS DPX-W-R. Varicose v eins of lower limb co-occurrent with edema 608774064 I83.899 VASCULE RA SAMPLES X 2 BOXES GIVEN TODAY== ======= RX TO [place] VASCUALR GIVEN FOR CLASS 1, (20-30 MMHG) THIGH HIGH, CLOSED TOE==== =====FLORENT[place] NUE CONSERVATI VE MEASURES INCLUDING MEDICAL GRADE COMPRESSIO N AND BEGIN VASOTONIC MEDICATION DIRECTED WELL OBTAIN DIAGNOSTIC VENOUS DPX-W-R. Venous sta sis edema of bilateral lower limbs [id number] 1563398 I87.2 VASCULE RA SAMPLES X 2 BOXES GIVEN TODAY== ======= RX TO [place] VASCUALR GIVEN FOR CLASS 1, (20-30 MMHG) THIGH HIGH, CLOSED TOE==== =====[place] NUE CONSERVATI VE MEASURES INCLUDING MEDICAL GRADE COMPRESSIO N AND BEGIN VASOTONIC MEDICATION DIRECTED WELL OBTAIN DIAGNOSTIC VENOUS DPX-W-R. [id number] Rolo Wren DO [facility] I[facility]ra [address] [facility] [address] [place] [address] 10/08/2022 12:44:06 11/26/2022 12:24:56 Pain due to varicose veins of lower extremity [id number] I83.819 Varicose v eins of lower extremity 79590535 I83.11 I83.12 [id number] MD FAITH Castro [address] [facility] [address] [place] [address] 10/08/2022 14:15:32 10/09/2022 10:40:17 Chronic peripheral venous hypertension 668218440 I87.323 PLEASE SCHEDULE PATIENT FOR VARITHENA #1 OF THE RIGHT LEG ONLY---BUCK L SCHEDULE FOLLOWING PROCEDURES AFTER TX OF RIGHT LEG==== ======== *RX FOR [place] VASCULAR, CLASS 1 (20-30 MMHG) THIGH HIGH COMPRESSIO N WAS GIVEN AT NEW PATIENT VISIT. PT WAS ADVISED THAT THEY MUST FILL THIS RX PRIOR TO THEIR FIRST SURGICAL TREATMENT. THEY ARE REQUIRED TO BRING THEIR COMPRESSIO N GARMENTS TO ALL PROCEDURES ====== ======RESU LTS OF THE DIAGNOSTIC VENOUS DPX-W-R TESTING WAS DISCUSSED IN LENGTH WITH PATIENT PRIOR TO LEAVING CLINIC. PLAN OF TREATMENT ACCORDING TO THE RESULTS OF THE U/S WERE ALSO DISCUSSED WITH PATIENT, INCLUDING RISK VS BENEFIT OF TREATMENT. PATIENT CLAIMS FULL UNDERSTAND ING OF THE TREATMENT PLAN GIVEN AND WISHES TO MOVE FORWARD.== THIS PATIENT SUFFERS FROM SYMPTOMATI C CHRONIC VENOUS INSUFFICIE NCY WITH INFLAMMATI ON OF BILATERAL LEGS. GIVEN THE HX OF FAILURE OF CONSERVATI VE MEASURES TO CORRECT UNDERLYING DAILY SX S , I FEEL THIS PATIENT IS AN EXCELLENT CANDIDATE FOR VARITHENA MICROFOAM INJECTIONS . THESE MODALITIES ARE FOUND TO BE MEDICALLY NECESSARY TO TX PT S UNDERLYIN G SAPHENOUS VEIN REFLUX OF BILATERAL LEGS. BOTH EVLT AND VARITHENA HAVE BEEN PROVEN TO POSITIVELE Y IMAPCT THE PATIENT S LIFE IN ONE OR ALL OF THE FOLLOWING WAYS:1. RELIEF OF PRESENTING LEGS SX S .2. PREVENTION OF PROGRESSIO N OF CVI SX S AND CLINICALMA NIFESTATIO N.3. INCREASES HEALING OF VENOUS STASIS ULCERATION IF PRESENTAND DECREASES FREQUENCY OF ULCER REOCCURREN CE.4. OVERALL IMPROVEMEN T OF PATIENT S DAILY QUALITY OF LIFE.5. DECREASED RISK FOR COMPLICATI ONS SUCH IRREVERSIB LESKIN CHANGES, SKIN INFECTIONS SUCH CELLULITIS , ANDPREVENT ION OF ULCER DEVELOPMEN T.6. DECREASED RISK FOR THROMBOTIC EVENTS SUCH ASSUPERFIC IAL THROMBOPHL EBITIS OR DVT.====== ======RAQUEL MMENDATION S:1. SUCCESSFUL CLOSURE OF THE RIGHT ABOVE KNEE GSV2. VARITHENA OF THE RIGHT DISTAL THIGH TO MID CALF GSV INTRAFASCI AL VARICOSITY 3. VARITHENA OF THE RIGHT BELOW KNEE RESIDUAL GSV4. MEDICAL ECA X 1========= =5. SUCCESSFUL CLOSURE OF THE LEFT ABOVE KNEE GSV (MID THIGH THROUGH TO PROXIMAL THIGH)6. VARITHENA OF THE DISTAL THIGH TO PROXIMAL CALF RESIDUAL GSV7. AMBULATORY PHLEBECTOM Y OF THE LEFT ANTERIOR THIGH (PROX-MID/ DISTAL THIGH) BULGING VARICOSITI ES8. MEDICAL ECA X 1 Pain due t o varicose veins of lower extremity [id number] I83.819 VASCULE RA SAMPLES X 2 BOXES GIVEN TODAY== ======= RX TO [place] VASCUALR GIVEN FOR CLASS 1, (20-30 MMHG) THIGH HIGH, CLOSED TOE==== =====FLORENTINO NUE CONSERVATI VE MEASURES INCLUDING MEDICAL GRADE COMPRESSIO N AND BEGIN VASOTONIC MEDICATION DIRECTED WELL OBTAIN DIAGNOSTIC VENOUS DPX-W-R. Pain in le ft lower limb [id number] M79.605 CONTINUE WITH CURRENT CONSERVATI VE MEASURES, INCLUIDNG MEDICAL GRADE GRADUATED COMPRESSIO N, LEG ELEVATION, AND USE OF VASOTONIC MEDICATION VASCULERA. Pain in ri ght lower limb [id number] M79.604 CONTINUE WITH CURRENT CONSERVATI VE MEASURES, INCLUIDNG MEDICAL GRADE GRADUATED COMPRESSIO N, LEG ELEVATION, AND USE OF VASOTONIC MEDICATION VASCULERA. Varicose v eins of lower limb co-occurrent with edema 239965077 I83.899 CONTINUE WITH CURRENT CONSERVATI VE MEASURES, INCLUIDNG MEDICAL GRADE GRADUATED COMPRESSIO N, LEG ELEVATION, AND USE OF VASOTONIC MEDICATION VASCULERA. Lymphedema of bilateral lower limbs 1442355405 4551149 I89.0 PATIENT WILL BE REFERRED FOR HOME LYMPHATIC PUMPING FLEXITOUCH DEVICE. I AM SPECIFICAL LY RECOMMENDI NG FLEXITOUCH IT PROVIDES THERAPEUTI C PRESSURES THAT HAVE BEEN CLINICALLY PROVEN IN PEER REVIEWED RESEARCH TO STIMULATE LYMPHATIC FUNCTION AND REDUCE CELLULITIS INFECTIONS BY 79%. DUE TO THE EXTENSIVE EVIDENCE BASE PROVING ITS EFFICACY, IT IS THE ONLY DEVICE WHICH I WILL PRESCRIBE MY PATIENTS. [id number] Carmelina Marquez MD [facility] [address] ,[facility] [address] [facility] [place] [address] 10/26/2022 14:10:11 10/26/2022 15:33:25 Chronic peripheral venous hypertension 367774163 I87.323 PROCEDURE PERFROMED: 1. VARITHENA #1 OF THE RIGHT LEG: TOTAL OF 10.0 ML'S USED---TX #1======== ====PERFOR VERA PHYSICIAN: Brendon MARQUEZ M.D======= =====CLINI ISAAC CORRELATIO N:1. VT #2: RIGHT LEG BELOW KNEE RESIDUAL GSV AND GSV BRANCHING PERFORATIN G VEIN====== ======INFO RMED CONSENT:Th e purpose of the procedure, along with its risks, benefits, and alternativ es for treatment were discussed with the patient who then agreed to proceed. The risk of DVT was discussed in detail.=== =======PRO CEDURE:The right leg was prepped and draped asepticall y. Under ultrasound guidance, needle access to the incompeten t vein was obtained. The vein was mapped to visualize any adjacent teletype or varitype keyboard operator veins. The vein was exsanguina celina. The foot was placed in dorsiflexi on.======= =======UND ER U/S GUIDANCE A TOTAL OF 5.0 ML'S WAS USED TO TX THE RIGHT BELOW KNEE GSV NEOVASCUAL RIZATION AND 5.0 ML'S USED TO TX THE RIGHT BELOW KNEE GSV BRANCHING VARICOSITY ===Dorsifl exion was performed 30 times. The deep venous system was scanned to verify absence of Varithena. The sheath was promptly removed.== IMMEDIATEL Y AFTER PROPER DORSIFLEXI ON AND FLUSHING OF THE DEEP VEIN SYSTEM, A TUBULAR COMPRESSIO N DRESSING WAS APPLIED TO THE RIGHT INNER MEDIAL CALF ALONG THE DISTRIBUTI ON OF VEINS TREATMENT. A THIGH HIGH CLASS 1 MEDICAL GRADE COMPRESSIO N STOCKING WAS THEN PLACED. THE PATIENT WAS THEN REQUIRED TO PERFORM 2 WALKING LAPS FOR AMBULATION IN OFFICE PRIOR TO LEAVING CLINIC.=== ========DI SCUSSION:Z ERO COMPLICATI ONS NOTED OR REPORTED. [id number] Rolo Wren DO COR [facility] [place] [address],[facility] [address] [place] [address] 11/07/2022 12:37:52 12/10/2022 11:00:11 Pain due to varicose veins of lower extremity [id number] I83.819 Varicose v eins of lower limb co-occurrent with edema 387540698 I83.899 Health Concerns Section Related Observation LastModified by Organization Detai ls LastModified Time None Recorded Concern Status LastModified by Organization Details LastModified Time None Recorded Advance Directives Directive None Recorded Payers Insurance Date Sequence Insurance Name Policy Number Policy Xie Covered Member ID Xie Member ID Guarantor Name 12/20/2022 1 [place] Tran Frances [id number] Tran Frances 09/27/2023 2 [place] [id number] Mars Frances [id number] Tran Frances Notes Date Note Type Note Provider Name and Address Organization Details Recorded Time 09/13/2022 text/html VeinReported by PatientBILATERAL LEG MEASUREMENTS:========= RIGHT LEG: ---PROX THIGH:65cmMID THIGH:59cmDISTAL THIGH:53cm PROX CALF:42cmMID CALF:44cmDISTAL CALF:40cmANKLE:28cmFOO T:24cm LEF T LEG: ----PROX THIGH:60cmMID THIGH:54cmDISTAL THIGH:50cm PROXIMAL CALF:43cmMID CALF:43cmDISTAL CALF:41cmANKLE:25cmFOO T:23.5cm === ROS as noted in the HPI PT IS A 62 Y/O FEMALE REFERRED BY HER LMT JACKIE MARQUEZ FOR THE CC OF SEVERE BULGING VV'S LEFT > RIGHT, AND BILATERAL LEG PAIN, HEAVINESS, ACHING, SWELLING, CRAMPING, RESTLESS LEG SYNDROME, THROBBING, AND BURNING. PT HAS HAD PREVIOUS TX WITH BILATERAL ABLATION IN 2005 WELL HAS CONTINUED ALL CONSERVATIVE MEASURES WITHIN THE INTERIM, PT'S SX'S BEGAN APPROX 2-3 YEARS AGO BUT HAS PROGRESSIVELY WORSENED OVER THE PAST FEW MONTHS. SHE HAS A TKA PLANNED FOR THE RIGHT KNEE AT END OF MONTH, BUT WANTS TO HAVE HER VEINS TX PRIOR DUE TO THE SEVERITY OF HER BILATERAL LEG SX'S, DESPITE PREVIOUS MEDICAL TX AND CONTINUED CONSERVATIVE MEASURES. PT'S ONGOING LEG SX'S LIMITS THEIR ABILITY TO PERFORM REQUIRED DAILY ACTIVIES SUCH STANDING OR SITTING FOR > 30 MINS AT A TIME, THEY HAVE TO FREQUENTLY SIT DOWN AND REST TO ELEVATE AND CAN NOT ENGAGE IN EXERCISE DUE TO THEIR LEG PAIN. =====PT DENIES HX OF DVT OR PE, CELLULITIS OR PHLEBITIS.PT DENIES HX OF PAD/CAD, HEART ATTACK OR STROKE .PT DENIES HX OF LIVER, KIDNEY OR THYROID DISEASE. Carmelina Marquez MD [address] [place] [address],[address], [place], [address], [facility] 10/08/2022 14:00:01 10/08/2022 text/html ROS as noted in the HPI PATIENT IS HERE FOR TO DISCUSS FINDINGS OF THE DIAGNOSTIC VENOUS DPX-W-R THAT WAS PERFORMED ON 10/08/2022 WELL TO OBTAIN DETAILED INFORMATION REGARDING THEIR CUSTOM TREATMENT PLAN DESIGNATED BY DR. MARQUEZ. TREATMENT PLAN IS BASED OFF PT S PATHOLOGIC ULTRASOUND FINDINGS COUPLED WITH PHYSICAL EXAM. PATIENT DENIES CHANGES TO LOWER EXTREMITY SX S OR EXAM WITHIN THE INTERIM. PT HAS NO NEW COMPLAINTS TODAY. Carmelina Marquez MD [address] [place] [address],[address], [place], [address], [facility] 10/09/2022 05:05:00 OBGyn Episode No OBEpisode recorded.
--- OUTSIDE RECORDS SUMMARY | 2025-06-18 15:19 | XMS_ITS | Clinical Summary ---
Author Organization [facility] Address [address] [place] [address] Care Team Providers Care Senior Project Leader/Team Lead Name Role Phone Nidhi Durham MD Primary Care Provider Jacqueline Salgado MD Unavailable [phone] Allergies No known active allergies Medications olmesartan (BENICAR) 5 mg tablet Take 10 mg by mouth daily before breakfast. 0 Active zinc gluconate 50 MG tablet Take 50 mg by mouth daily. Active COLLAGEN PO Take by mouth. Act miladys omega-3 fatty acids (FISH OIL) 1000 mg CAPS Take 1,000 mg by mouth every 12 (twelve) hours. Active POTASSIUM PO Take 99 mg by mouth daily. Active olmesartan (BENICAR) 20 mg tablet olmesartan 20 mg tablet TAKE 1 TABLET BY MOUTH DAILY 3 Active Active Problems Problem Noted Date Diagnosed Date Primary osteoarthritis of right knee 11/23/2022 Chronic pain of right knee 11/23/2022 Lymphedema of both lower extremities 10/09/2022 Pain due to varicose veins of lower extremity Chronic peripheral venous hypertension Venous stasis ulcer with edema of lower leg 12/2022 Varicose veins of lower extremity with edema 12/2022 Pain of right lower leg 10/01/2022 Pain of left lower extremity 10/01/2022 Abdominal pain 09/17/2021 Primary hypertension 09/17/2021 Immunizations Immunization Administration Dates Next Due SARS-CoV-2 (COVID-19)MRNA Va ccine 6M-5years (MODERNA Monovalent) 03/29/2021,02/27/2021 Social History Tobacco Use Types Packs/Day Years Used Date Smoking Tobacco: Never Smokeless Tobacco: Never Alcohol Use Standard Drinks/Week Comments Yes 14 (1 standard drink = 0.6 oz pu re alcohol) Comments No Sex and Gender Information Value Date Recorded Sex Assigned at Not on file Legal Sex Female 9:19 AM [facility] Gender Identity Not on file Sexual Orientation Not on file Last Filed Vital Signs Vital Sign Reading Time Taken Comments Blood Pressure 126/78 11/23/2022 8:46 AM [facility] Pulse 62 11/23/2022 8:46 AM M[facility] Temperature 36.6 C (97.8 F) 11/23/2022 8:46 AM MST Respiratory Rate 16 11/23/2022 8:46 AM [facility] Oxygen Saturation 95% 11/23/2022 8:46 AM MST Inhaled Oxygen Concentration - - Weight 107.5 kg (237 lb) 11/23/2022 8:46 AM MST Height 175.3 cm (5' 9) 11/23/2022 8:46 AM MST Body Mass Index 35 11/23/2022 8:46 AM [facility] Plan of Treatment Health Maintenance Due Date Last Done Comments Cologuard 1959 Colonoscopy 1959 Colorectal Cancer Screening 1959 Fecal Immunohistochemical Test 1959 Mammogram 1959 Sigmoidoscopy 1959 Adult Wellness Visit 1977 Hepatitis C Screen 1977 DTaP,Tdap,or Td Vaccines (1 - Tdap) 1978 Pneumococcal Vaccine: 50+ Ye ars (1 of 1 - PCV) 2009 RSV Vaccine (1 - Risk 50-74 years 1-dose series) 2009 Zoster (Shingles) Vaccine (1 of 2) 2009 DEXA Scan 02/14/2024 COVID-19 Vaccine (1 - 2024-2 6 season) 2025 03/29/2021, 02/27/2021 Influenza Vaccine (#1) 2025 HPV VACCINES (No Doses Required) Completed Hepatitis A Vaccine Aged Out No longe r eligible based on patient's age to complete this topic Medical Devices Implanted Type Area Foundry Patternmaker Device Identifier Shelf Expiration Date Model / Serial / Lot Stent Ureteral 6fr 24cm Tria Soft - [id number] Implanted:Qty : 1 on 05/24/2020 by Castro Day MD at [facility] Stent Left: Ureter [employer] [id number] 02/15/2023 [id number] / / [id number] Stent Ureteral 6fr 24cm Tria Soft - [id number] Implanted:Qty : 1 on 06/07/2020 by Castro Day MD at [facility] Stent [employer] [id number] / / [id number] Insurance [employer] CROSS [facility]IC [facility] [place] OUT OF PS[facility]CHIATRIC HOSPITAL BLUE CROSS OUT OF PSYCHIATRIC HOSPITAL BLUE CROSS OUT OF PS[facility]CHIATRIC HOSPITAL Advance Directives For more information, please contact: [phone] * Full Code (Latest Code Status on File) Date Activated Date Inactivated Comments 09/17/2021 2:07 PM 09/17/2021 5:11 PM Care Teams Senior Project Leader/Team Lead Relationship Specialty Start Date End Date Nidhi Durham MD PCP - General Family Medicine 04/22/20 Jacqueline Salgado MD Consulting Physician Cardiology 05/23/20
--- OUTSIDE RECORDS SUMMARY | 2025-06-18 15:19 | XMS_ITS | Encounter Summary ---
Author Organization [facility] Address [address] [place] [address] Care Team Providers Care Ware Cleaner Name Role Phone Nidhi Durham MD Primary Care Provider [phone] Jacqueline Salgado MD Unavailable Encounter Details Date Type Department Care Team (Late st Contact Info) Description 05/24/2020 Procedure Pass [facility] Inpatient Surgery [address] [place] [address] Social History Tobacco Use Types Packs/Day Years Used Date Smoking Tobacco: Never Smokeless Tobacco: Never Alcohol Use Standard Drinks/Week Comments Yes 14 (1 standard drink = 0.6 oz pu re alcohol) Comments No Sex and Gender Information Value Date Recorded Sex Assigned at Not on file Legal Sex Female 9:19 AM MST Gender Identity Not on file Sexual Orientation Not on file COVID-19 Exposure Response Date Recorded In the last month, have you been in contact with someone who was confirmed or suspected to have Coronavirus / COVID-19? No / Unsure 05/24/2020 11:12 AM MST documented as of this encounter Plan of Treatment Not on file documented as of this encounter Visit Diagnoses Not on filedocumented in this encounter Additional Health Concerns Infection Onset Date Last Indicated Resolved Time COVID-19 09/17/2021 09/17/2021 10/08/2021 9:24 PM MST documented as of this encounter Care Teams Ware Cleaner Relationship Specialty Start Date End Date Nidhi Durham MD PCP - General Family Medicine 04/22/20 Jacqueline Salgado MD Consulting Physician Cardiology 05/23/20 documented as of this encounter
--- OUTSIDE RECORDS SUMMARY | 2025-06-18 15:19 | XMS_ITS | Encounter Summary ---
Author Organization [facility] Address [address] [place] [address] Care Team Providers Care Dispensing And Measuring Optician Name Role Phone Nidhi Durham MD Primary Care Provider [phone] Jacqueline Salgado MD Unavailable [phone] Encounter Details Date Type Department Care Team (Late st Contact Info) Description 06/07/2020 Procedure Pass [facility] Inpatient Surgery [address] [place] [address] Social History Tobacco Use Types [...] have Coronavirus / COVID-19? No / Unsure 06/07/2020 11:11 AM MST documented as of this encounter Plan of Treatment Not on file documented as of this encounter Visit Diagnoses Not on filedocumented in this encounter Additional Health Concerns Infection Onset Date Last Indicated Resolved Time COVID-19 09/17/2021 09/17/2021 10/08/2021 9:24 PM MST documented as of this encounter Care Teams Dispensing And Measuring Optician Relationship Specialty Start Date End Date Nidhi Durham MD PCP - General Family Medicine 04/22/20 Jacqueline Salgado MD Consulting Physician Cardiology 05/23/20 documented as of this encounter
--- NOTE | 2025-06-18 18:03 | DI.RAD.S_ITS ---
PROCEDURE: XR CHEST 1V INDICATIONS: NG placement TECHNIQUE: One view of the chest was acquired. COMPARISON: [facility], CR, XR ABDOMEN MIN 2V, 06/18/2025, 7:22. FINDINGS: Surgical changes and devices: Nasogastric tube has been placed with distal tip and side port extending below the level of the diaphragm and coil within the left upper quadrant. This is likely within the stomach and appropriately position. Lungs and pleura: Eventration of the right hemidiaphragm. Minimal streaky bibasilar atelectasis. No pneumothorax or dense consolidation. Mediastinum: Mediastinal contours appear normal. Heart size is normal. Bones and chest wall: No suspicious bony lesions. Overlying soft tissues appear unremarkable. IMPRESSION: Nasogastric tube in place and appears appropriately position. No acute cardiopulmonary abnormalities or focal consolidation. Dictated by: Jose Lopez M.D. on 06/18/2025 at 18:54 Approved by: Jose Lopez M.D. on 06/18/2025 at 18:55
--- NOTE | 2025-06-18 18:21 | PC.NURSE ---
Pt very bloated and uncomfortable most of shift. Abd Xrays completed in the AM. NG tube to LIS placed, green output. WALTER drain intact, serous sang output.
[2025-06-18 19:00] VITALS: BP 171/92; PULSE 80; RESP 20; TEMP 37.1; O2SAT 95
[2025-06-18] MEDS: BENZOCAINE/MENTHOL 1 LOZ PKT 1 EACH PO (20:50)
[2025-06-18 21:15] VITALS: BP 165/87; PULSE 82
[2025-06-18] MEDS: hydrALAZINE 20 MG/ML VIAL 10 MG IV (21:15)
[2025-06-18 22:00] VITALS: BP 150/76; BP 152/76
[2025-06-19] VITALS (7 sets, daily range): BP systolic 118–179; BP diastolic 75–96; PULSE 79–97; RESP 18; TEMP 36.1–37.1; O2SAT 93–99
--- NOTE | 2025-06-19 01:24 | PC.NURSE ---
Notified MD Almaguer of urine cx + for Proteus Mirablilis
[2025-06-19] MEDS: PIPERACILLIN/TAZO 3.375 GM in SODIUM CHLORIDE 0.9% 100 ML IV ×3 (03:53→19:50)
[2025-06-19] MEDS: LACTATED RINGERS 1,000 ML 150 ML IV (05:53)
[2025-06-19 07:55] LABS: Hematocrit 40.4 % (36-46); Hemoglobin 13.7 g/dL (12.0-16.0); Mean Corpuscular HGB Conc 34.0 % (30-36); Mean Corpuscular Hemoglobin 32.8 PG (26-34); Mean Corpuscular Volume 96.4 fL (80-100); Platelet Count 357 X10^3/uL (150-400)
[2025-06-19 07:56] LABS: Add Manual Diff / Slide Review YES
--- NOTE | 2025-06-19 08:00 | DI.RAD.S_ITS ---
PROCEDURE: XR GASTROGRAFIN CHALLENGE COMPARISON: None. INDICATIONS: SBO FINDINGS/IMPRESSION: Intravenous contrast within loops of distended small bowel. No large bowel contrast identified. Dictated by: Warner Butler M.D. on 06/19/2025 at 13:04 Approved by: Warner Butler M.D. on 06/19/2025 at 13:05
--- NOTE | 2025-06-19 08:16 | PC.NURSE ---
Day shift: Pt A&Ox4. NG clamped for gastrografin study at 0800. Call light within reach. Care ongoing.
[2025-06-19] MEDS: hydrALAZINE 20 MG/ML VIAL 10 MG IV ×2 (08:39→19:50)
[2025-06-19] MEDS: PANTOPRAZOLE 40 MG VIAL IV (08:39)
[2025-06-19] MEDS: ONDANSETRON 4 MG/2 ML INJ IV (08:39)
[2025-06-19] MEDS: HEPARIN 5,000 UNIT/ML VIAL 5000 UNIT SUBCUT ×2 (08:39→19:50)
[2025-06-19 09:48] LABS: Basophils Percent Manual 1.0 % (0-1); Lymphocytes Percent Manual 29.0 % (25-45); Metamyelocytes Percent 1.0 % (-0); Monocytes Percent Manual 6.0 % (2-11); Myelocytes Percent 2.0 % (-0); Neutrophils Absolute Manual 5002 /uL (3000-5900); RBC Morphology Normal Morphology; Segmented Neutrophils Percent 61.0 % (38-70); Total Cells Counted 100; Toxic Granulation Present
--- NOTE | 2025-06-19 11:41 | P.PN_ITS ---
Subjective Subjective Date Patient Seen: 06/19/25 Time Patient Seen: 11:41 Interval history: Gastrografin started this morning She feels some movement but has not passed anything per rectum yet Exam Vital Signs (past 8 hours): - 06/19/25 08:39 06/19/25 08:55 06/19/25 10:11 Temperature 96.9 F L Pulse Rate 89 79 85 Respiratory Rate 18 Blood Pressure 171/92 H 177/96 H 167/89 H Pulse Oximetry 99 Oxygen Flow Rate 0 Fraction of Inspired Oxygen 28 SaO2/FiO2 Ratio 328 Oxygen Delivery Method Room Air Oxygen Flow Rate 0 Narrative Exam Narrative: Abdomen is soft Drain output is serous Objective Labs 06/19/25 07:11 06/16/25 11:30 Labs: Laboratory Results - last 24 hr 06/19/25 07:11 WBC 8.2 RBC 4.19 Hgb 13.7 Hct 40.4 MCV 96.4 MCH 32.8 MCHC 34.0 RDW 12.6 Plt Count 357 Neut % (Auto) Not Reportable Lymph % (Auto) Not Reportable [place] % (Auto) Not Reportable Eos % (Auto) Not Reportable Baso % (Auto) Not Reportable Lymph # (Auto) Not Reportable [place] # (Auto) Not Reportable Baso # (Auto) Not Reportable Total Counted 100 Seg Neutrophils % 61.0 Lymphocytes % (Manual) 29.0 Monocytes % (Manual) 6.0 Basophils % (Manual) 1.0 Metamyelocytes % 1.0 H Myelocytes % 2.0 H Neutrophils # (Manual) 5002 Toxic Granulation Present H RBC Morphology Normal morphology PFSH Social History household members: spouse Smoking Status: Never smoker alcohol intake: current Assessment & Plan Assessment and plan (1) Perforated appendicitis: Status: Acute Plan Discontinue drain Once the Gastrografin is in her colon on radiographs or once she is passing liquid bowel movements she can discontinue the NG tube Time-Based Coding :: [TOTAL MINUTES] spent with patient and on the chart (including review of chart, obtaining history, exam, reviewing outside data, placing orders, documenting exam and treatment plan, and counseling patient) on [DATE]. Quality VTE Deep Vein Thrombosis/Pulmonary Embolism Present on Admission: No IH PROFEE Senior Naval Parachutist Document charge(s): No
[2025-06-19] MEDS: SODIUM CHLORIDE 0.9% 1,000 ML 150 ML IV ×2 (12:44→19:31)
[2025-06-19] MEDS: BENZOCAINE/MENTHOL 1 LOZ PKT 1 EACH PO ×2 (17:44→22:02)
[2025-06-20] MEDS: SODIUM CHLORIDE 0.9% 1,000 ML 150 ML IV ×2 (02:36→09:41)
[2025-06-20] MEDS: PIPERACILLIN/TAZO 3.375 GM in SODIUM CHLORIDE 0.9% 100 ML IV ×3 (03:55→19:54)
[2025-06-20 05:33] VITALS: BP 172/92; PULSE 101
[2025-06-20] MEDS: hydrALAZINE 20 MG/ML VIAL 10 MG IV ×2 (05:33→20:13)
[2025-06-20] MEDS: ACETAMINOPHEN IV 1,000 MG/100 ML VIAL 400 MG IV ×2 (05:34→11:37)
[2025-06-20 06:08] VITALS: BP 155/86; PULSE 98
[2025-06-20] MEDS: BENZOCAINE/MENTHOL 1 LOZ PKT 1 EACH PO (06:11)
[2025-06-20 07:39] VITALS: BP 162/87; PULSE 99; RESP 14; TEMP 37.4; O2SAT 93
[2025-06-20 09:03] LABS: Add Manual Diff / Slide Review NO; Hematocrit 42.2 % (36-46); Hemoglobin 14.4 g/dL (12.0-16.0); Lymphocytes Absolute Auto 1700 /uL (1100-4500); Mean Corpuscular HGB Conc 34.0 % (30-36); Mean Corpuscular Hemoglobin 32.7 PG (26-34); Mean Corpuscular Volume 96.2 fL (80-100); Platelet Count 391 X10^3/uL (150-400)
[2025-06-20] MEDS: PANTOPRAZOLE 40 MG VIAL IV (09:41)
[2025-06-20] MEDS: SIMETHICONE 80 MG TABLET PO ×2 (09:41→17:01)
[2025-06-20] MEDS: HEPARIN 5,000 UNIT/ML VIAL 5000 UNIT SUBCUT ×2 (09:41→21:26)
[2025-06-20] MEDS: LOSARTAN 50 MG TABLET PO (09:41)
--- NOTE | 2025-06-20 10:08 | P.PN_ITS ---
Subjective Subjective Date Patient Seen: 06/20/25 Time Patient Seen: 10:08 Interval history: Three liquid bowel movements overnight and this morning. Feeling better since NG tube discontinued. Tolerating sips of clears Exam Vital Signs (past 8 hours): - 06/20/25 05:33 06/20/25 06:08 06/20/25 07:39 Temperature 99.3 F Pulse Rate 101 H 98 H 99 H Respiratory Rate 14 Blood Pressure 172/92 H 155/86 H 162/87 H Pulse Oximetry 93 Oxygen Flow Rate 0 Fraction of Inspired Oxygen 28 SaO2/FiO2 Ratio 328 Oxygen Delivery Method Room Air Oxygen Flow Rate 0 Narrative Exam Narrative: Abdomen is soft, distended No peritoneal signs Objective Labs 06/20/25 08:45 06/16/25 11:30 Labs: Laboratory Results - last 24 hr 06/20/25 08:45 WBC 7.6 RBC 4.39 Hgb 14.4 Hct 42.2 MCV 96.2 MCH 32.7 MCHC 34.0 RDW 12.5 Plt Count 391 Neut % (Auto) 65.5 Lymph % (Auto) 22.8 L [place] % (Auto) 9.5 Eos % (Auto) 1.4 L Baso % (Auto) 0.8 Neut # (Auto) 5000 Lymph # (Auto) 1700 [place] # (Auto) 700 Eos # (Auto) 100 Baso # (Auto) 100 PFSH Social History household members: spouse Smoking Status: Never smoker alcohol intake: current Assessment & Plan Assessment and plan (1) Perforated appendicitis: Status: Acute Plan Advance diet as tolerated Possible home tomorrow if tolerating regular diet Time-Based Coding :: [TOTAL MINUTES] spent with patient and on the chart (including review of chart, obtaining history, exam, reviewing outside data, placing orders, documenting exam and treatment plan, and counseling patient) on [DATE]. Quality VTE Deep Vein Thrombosis/Pulmonary Embolism Present on Admission: No IH PROFEE Banking Services Advisor Document charge(s): No
[2025-06-20] MEDS: ONDANSETRON 4 MG/2 ML INJ IV (19:51)
[2025-06-20 20:10] VITALS: BP 180/95; PULSE 80; RESP 18; TEMP 36.9; O2SAT 93
[2025-06-20 20:13] VITALS: BP 180/95; PULSE 90
[2025-06-20 21:12] VITALS: BP 164/82; PULSE 91
[2025-06-21] MEDS: SODIUM CHLORIDE 0.9% 1,000 ML 150 ML IV (01:37)
[2025-06-21] MEDS: ONDANSETRON 4 MG/2 ML INJ IV ×2 (02:25→17:02)
[2025-06-21] MEDS: SIMETHICONE 80 MG TABLET PO ×3 (02:30→20:30)
--- NOTE | 2025-06-21 02:42 | PC.NURSE ---
Pt has been nauseated since beginning of shift. Zofran given. Pt states she has been nauseated the whole shift. Simethicon given. Abdomen still fairly firm, + BS, had loose stool.
[2025-06-21] MEDS: PIPERACILLIN/TAZO 3.375 GM in SODIUM CHLORIDE 0.9% 100 ML IV ×3 (04:32→20:29)
--- NOTE | 2025-06-21 04:41 | PC.NURSE ---
Pt vomited 600ml of food and bile. Passing alot of gas. States she feels much better. Explained to start on clears again and go slow.
--- NOTE | 2025-06-21 07:09 | DI.RAD.S_ITS ---
PROCEDURE: XR ABDOMEN MIN 2V INDICATIONS: SBO f/u TECHNIQUE: 2 views of the abdomen were acquired. COMPARISON: [facility], CT, CT ABDOMEN PELVIS W CON, 06/16/2025, 12:17. [facility], CR, XR GASTROGRAFIN CHALLENGE, 06/19/2025, 12:17. [facility], CR, XR ABDOMEN MIN 2V, 06/18/2025, 7:22. FINDINGS: Surgical changes and devices: Left total hip arthroplasty. Bowel: Small amount of oral contrast material is seen in the colon and rectum related to the small bowel follow-through from 06/19/2025. Dilated air-filled loops of small bowel are seen throughout the central abdomen. No pneumoperitoneum. Soft tissues: No masses; visualized solid organ contours appear normal in size. No suspicious abdominal calcifications. Bones: No suspicious bony abnormalities. IMPRESSION: Dilated air-filled loops of small bowel in the abdomen suggest persistent partial small bowel obstruction or ileus. Approved by: Harvinder Davis M.D. on 06/21/2025 at 7:54
--- NOTE | 2025-06-21 07:21 | PM.PN.IH.1 ---
Subjective Subjective Date Patient Seen: 06/21/25 Time Patient Seen: 07:21 Interval history: Emesis last night but still having BMs and passing flatus Exam Vital Signs (past 8 hours): Fraction of Inspired Oxygen 28 SaO2/FiO2 Ratio 328 Oxygen Delivery Method Room Air Oxygen Flow Rate 0 Narrative Exam Narrative: Const General: comfortable and no acute distress Orientation: alert and oriented x3 Resp Effort & Inspection: normal respiratory effort and able to speak in complete sentences Cardio Rate: regular rate GI Palpation: soft, distended, +tympany, non-peritoneal Extrem General: no pedal edema and no calf tenderness Objective Labs 06/20/25 08:45 06/16/25 11:30 Labs: Laboratory Results - last 24 hr 06/20/25 08:45 WBC 7.6 RBC 4.39 Hgb 14.4 Hct 42.2 MCV 96.2 MCH 32.7 MCHC 34.0 RDW 12.5 Plt Count 391 Neut % (Auto) 65.5 Lymph % (Auto) 22.8 L [place] % (Auto) 9.5 Eos % (Auto) 1.4 L Baso % (Auto) 0.8 Neut # (Auto) 5000 Lymph # (Auto) 1700 [place] # (Auto) 700 Eos # (Auto) 100 Baso # (Auto) 100 PFSH Social History household members: spouse Smoking Status: Never smoker alcohol intake: current Assessment & Plan Assessment and plan (1) Small bowel obstruction: Status: Acute (2) Intra-abdominal abscess: Status: Acute (3) Perforated appendicitis: Status: Acute Plan POD#5 lap appy for perforated appendicitis with abscess Drain removed over weekend Emesis last night Check AXR, labs C/W PSBO, may require laparoscopy to clear obstruction if no improvement Time-Based Coding :: [TOTAL MINUTES] spent with patient and on the chart (including review of chart, obtaining history, exam, reviewing outside data, placing orders, documenting exam and treatment plan, and counseling patient) on [DATE]. Quality VTE Deep Vein Thrombosis/Pulmonary Embolism Present on Admission: No IH PROFEE Printed Circuit Boards Contact Printer Document charge(s): Yes Charge Codes Subsequent inpatient/observation care: [id number]
[2025-06-21 08:00] VITALS: BP 163/96; PULSE 95; RESP 18; TEMP 36.8; O2SAT 93
[2025-06-21] MEDS: HEPARIN 5,000 UNIT/ML VIAL 5000 UNIT SUBCUT ×2 (08:32→20:30)
[2025-06-21] MEDS: PANTOPRAZOLE 40 MG VIAL IV (08:32)
[2025-06-21] MEDS: LOSARTAN 50 MG TABLET PO (08:32)
[2025-06-21 09:04] LABS: Albumin 3.4 g/dL (3.5-5.0); Blood Urea Nitrogen 9 mg/dL (7-17); Calcium 8.6 mg/dL (8.4-10.2); Carbon Dioxide 23 mmol/L (22-32); Chloride 105 mmol/L (98-107); Estimated Glomerular Filt Rate > 60 mL/min (>60); Glucose 89 mg/dL (70-99); HEMOLYSIS < 15 (0-50); Magnesium 1.6 mg/dL (1.6-2.3); Phosphorous 3.3 mg/dL (2.8-4.1); Potassium 3.1 mmol/L (3.4-5.1); Sodium 139 mmol/L (137-145)
--- NOTE | 2025-06-21 10:40 | DIET.CONS ---
Dietary Consultation Note Admission Date: 06/16/2025 12:55 Assessment: 65 y F admitted for perforated appendix, complicated by ileus post op. Dietitian screened for LOS. EMR reviewed. Prior to admission had 5 days of N/V/C. Was able to take a little PO intakes. Last ate Jun 15. Pt was advanced to full liquids on post-op day 4. Overnight had emesis. Transitioned back to clears. Ht: 175.26 cm Wt: 90.718 kg BMI: 29.5 Last BM: 06/21/25 (06/21/25 02:15) MNA: Mike Score: 21 Diet: 06/21/25 Breakfast Clear Liquid Diet Diet Modifications: Nutrition Percent Meal Consumed 75% 06/20/25 18:10 Labs: RBC 4.39 X10^6/uL (4.0-5.2) 06/20/25 08:45 Hgb 14.4 g/dL (12.0-16.0) 06/20/25 08:45 Hct 42.2 % (36-46) 06/20/25 08:45 Creatinine 0.53 mg/dL (0.52-1.04) 06/21/25 08:38 Lactate 1.2 mmol/L (0.7-2.1) 06/16/25 11:30 Nutrition Diagnosis: Inadequate oral intakes r/t altered GI function/structure aeb lap appy with ileus post-op, on days 5 of NPO/clears Interventions: Ensure clear EER: 1800 kcals (20 kcals/kg per BMI) 90 g protein (1g/kg per age) Monitoring/Evaluations: Will assess clears tolerance and monitor days on clears and diet advancement Electronically Signed by: Nae Tavares 06/21/25 10:40 Clinical Dietitian [address] [id number]
--- NOTE | 2025-06-21 10:55 | CM.DPNOTE ---
DCP note INSTALLATIONS INSPECTOR reviewed EMR per RN/surgeon note, pt vomited a lot overnight. back to clears. POD5 lap appy. may need to go to surgery again to clear out obstruction? Medical POC continues. P: dc home when medically stable. no identified needs at this time. will continue to follow closely for DCP coordination RENETTA Culp
[2025-06-21] MEDS: MAGNESIUM SULFATE 2 GM/50 ML PIGGYBACK IV (11:48)
[2025-06-21] MEDS: POTASSIUM CHLORIDE IN WATER 10 MEQ/100 ML PIGGYBACK 100 MEQ IV ×4 (11:48→14:50)
[2025-06-21 20:21] VITALS: BP 179/93; PULSE 91; RESP 18; TEMP 36.4; O2SAT 93
[2025-06-21] MEDS: hydrALAZINE 20 MG/ML VIAL 10 MG IV (20:29)
[2025-06-22] MEDS: PIPERACILLIN/TAZO 3.375 GM in SODIUM CHLORIDE 0.9% 100 ML IV (03:41)
--- NOTE | 2025-06-22 05:59 | P.PN_ITS ---
Subjective Subjective Date Patient Seen: 06/22/25 Time Patient Seen: 05:59 Interval history: No emesis overnight Large BMs and gas Ambulating Exam Vital Signs (past 8 hours): Fraction of Inspired Oxygen 28 SaO2/FiO2 Ratio 328 Oxygen Delivery Method Room Air Oxygen Flow Rate 0 Narrative Exam Narrative: ABD: soft, still distended, +tympany, slight improvement, non-peritoneal exam No calf tenderness Objective Labs 06/20/25 08:45 06/21/25 08:38 Labs: Laboratory Results - last 24 hr 06/21/25 08:38 Sodium 139 Potassium 3.1 L Chloride 105 Carbon Dioxide 23 BUN 9 Creatinine 0.53 Estimated GFR > 60 BUN/Creatinine Ratio 17.0 Glucose 89 Calcium 8.6 Phosphorus 3.3 Magnesium 1.6 Albumin 3.4 L PFSH Social History household members: spouse Smoking Status: Never smoker alcohol intake: current Assessment & Plan Assessment and plan (1) Small bowel obstruction: Status: Acute (2) Intra-abdominal abscess: Status: Acute (3) Perforated appendicitis: Status: Acute Plan POD#6 lap appy for perforated appendicitis with abscess Ileus vs SBO - large stool volume yesterday, continue simethicone No n/v overnight Tolerating full liquids Advance diet to soft Replacing K, Mg Ambulating Zosyn therapy, afebrile Possible discharge home today if tolerates solid food Time-Based Coding :: [TOTAL MINUTES] spent with patient and on the chart (including review of chart, obtaining history, exam, reviewing outside data, placing orders, documenting exam and treatment plan, and counseling patient) on [DATE]. Quality VTE Deep Vein Thrombosis/Pulmonary Embolism Present on Admission: No IH PROFEE Automatic Glove Former Document charge(s): Yes Charge Codes Subsequent inpatient/observation care: [id number]
[2025-06-22 06:01] VITALS: BP 161/88; PULSE 89
[2025-06-22] MEDS: hydrALAZINE 20 MG/ML VIAL 10 MG IV (06:01)
[2025-06-22] MEDS: ONDANSETRON 4 MG/2 ML INJ IV (06:02)
[2025-06-22 06:38] LABS: Blood Urea Nitrogen 6 mg/dL (7-17); Calcium 8.3 mg/dL (8.4-10.2); Carbon Dioxide 26 mmol/L (22-32); Chloride 105 mmol/L (98-107); Estimated Glomerular Filt Rate > 60 mL/min (>60); Glucose 116 mg/dL (70-99); HEMOLYSIS 24 (0-50); Magnesium 1.7 mg/dL (1.6-2.3); Potassium 3.1 mmol/L (3.4-5.1); Sodium 137 mmol/L (137-145)
[2025-06-22] MEDS: PROMETHAZINE 25 MG TABLET 12.5 MG PO (08:26)
[2025-06-22] MEDS: MAGNESIUM CHLORIDE 64 MG TABLET 128 MG PO (08:28)
[2025-06-22] MEDS: PANTOPRAZOLE 40 MG VIAL IV (08:29)
[2025-06-22] MEDS: HEPARIN 5,000 UNIT/ML VIAL 5000 UNIT SUBCUT (08:29)
[2025-06-22] MEDS: POTASSIUM CHLORIDE 20 MEQ TAB 40 MEQ PO (08:29)
[2025-06-22] MEDS: SIMETHICONE 80 MG TABLET PO (08:29)
[2025-06-22 08:30] VITALS: BP 150/88; BP 161/88; PULSE 88; RESP 16; TEMP 36.9; O2SAT 94
[2025-06-22] MEDS: LOSARTAN 50 MG TABLET PO (08:30)
--- NOTE | 2025-06-22 11:07 | CM.DPNOTE ---
DCP Note CERTIFIED CORPORATE TRAVEL EXECUTIVE reviewed EMR per surgeon note, no vomiting overnight, had a large BM overnight. SBO likely resolved. potentially dc today if can tolerate solid foods. no new needs at this time. P: dc back to RV with spouse later today vs tomorrow. will continue to follow if any new needs should arise RENETTA Culp
--- NOTE | 2025-06-22 12:02 | P.DS_ITS ---
History of Present Illness History of Present Illness Date Patient Seen: 06/22/25 Time Patient Seen: 07:00 Chief complaint: Flu, no bowel movements 5 days, [facility] Narrative: Patient being admitted from the emergency room with perforated appendicitis. CT scan demonstrates appendiceal perforation with abscess. WBC 13. Symptoms started on Saturday. Patient had recent hip and knee replacement surgery. She was started on IV Zosyn in the emergency room. Laparoscopic appendectomy scheduled for 1st available operating room time [facility]. She and her are visiting from [place]. Discharge Providers Provider Date of admission: 06/16/25 12:55 Discharge Date: 06/22/25 Discharge provider: Narendra Graff MD Summary Hospital Course Discharge Diagnosis: Perforated appendicitis with abscess Hospital Course: Patient admitted through ED with perforated appendicitis with abscess. Underwent lap appy with drain. Was on Zosyn postop. Had abdominal distention postop, ileus vs SBO, gastrografin challenge done, contrast didn't enter colon, but she began to have bowel activity and distention improved. Drain removed on POD#4. By POD#6 she was tolerating soft food and ready for discharge. She was afebrile on Zosyn postop. See d/c instructions. Status at Discharge Cognitive/behavioral status at discharge: oriented Functional status at discharge: independent ambulation Overall status at discharge: patient is progressing back to baseline Time Spent with Patient Time spent: Greater than 30 minutes Exam Vital Signs (past 8 hours): - 06/22/25 06:01 06/22/25 08:30 06/22/25 08:30 Temperature 98.4 F Pulse Rate 89 88 Respiratory Rate 16 Blood Pressure 161/88 H 161/88 H 150/88 H Pulse Oximetry 94 Oxygen Flow Rate 0 Fraction of Inspired Oxygen 28 SaO2/FiO2 Ratio 328 Oxygen Delivery Method Room Air Oxygen Flow Rate 0 Narrative Exam Narrative: ABD: soft, less distended, incisions CDI. Objective Labs 06/20/25 08:45 06/22/25 06:15 Labs: Laboratory Results - last 24 hr 06/22/25 06:15 Sodium 137 Potassium 3.1 L Chloride 105 Carbon Dioxide 26 BUN 6 L Creatinine 0.56 Estimated GFR > 60 BUN/Creatinine Ratio 10.7 Glucose 116 H Calcium 8.3 L Magnesium 1.7 PFSH Social History household members: spouse Smoking Status: Never smoker alcohol intake: current Discharge Assessment & Plan Assessment and Plan Assessment: Perforated appendicitis with abscess Plan of Treatment: Home on po abx; f/u in office Discharge Plan Discharge Plan Provider Discharge Comment: Call for n/v, fever, chills, abdominal pain, redness or drainage from incisions Low residue, low fiber diet No carbonation Shower OK, no swimming for 2 weeks No activity restrictions Continue oral antibiotics until gone Discharge orders & Medications Discharge Orders: Discharge (Order); Ordered 06/22/25 Ordered By: Narendra Graff Prescriptions: New hydrocodone-acetaminophen 5-325 mg tablet 1 tab PO Q4H PRN (Reason: pain) Qty: 20 0RF amoxicillin-pot clavulanate [Augmentin] 500-125 mg tablet 1 tab PO TID Qty: 10 0RF ondansetron 4 mg tablet,disintegrating 4 mg PO Q8H PRN (Reason: nausea and vomiting) Qty: 14 0RF Continued olmesartan 20 mg tablet 20 mg PO DAILY Follow up/Referrals: Narendra Graff MD [Physician, General Surgery] Diet/Activity/Treatments Diet comment: Low residue, low fiber diet Skin/Wound/Dressing Care Report to your healthcare provider any signs of infection, such as:: chills, fever, night sweats, increased pain, unusual drainage and unusual redness Visit Report/Discharge Packet Instructions: DI for an Appendectomy, DI for Laparoscopy Stand Alone Forms: Patient Portal/API, Stroke Signs & Symptoms Quality VTE Deep Vein Thrombosis/Pulmonary Embolism Present on Admission: No IH PROFEE Charge Codes Discharge inpatient/observation: [id number]
--- NOTE | 2025-06-22 13:52 | PC.NURSE ---
Patient is A&Ox4, VSS, afebrile on RA. Incisions to abdomen C/D/I. Patient tolerated breakfast well, w/ mild nausea controlled with prn zofran. She is cleared for discharge today with . Instructed to call MD Graff office to clarify for follow up.She verbalized understanding of light activity, medications, as well as site care and s/sx of infection. She is escorted via w/ch to private vehicle at approximately 1320 for discharge home today with all of her personal belongings.
== END 2025-06-22 13:20 | disposition home or self-care (01) | DRG 398 ==
LOC: ED 12:54 → AC 12:56
PROVIDERS: Admitting Provider Surgery; Emergency Provider Physician Assistant Medical; Referring Provider Physician Assistant Medical; Visit Provider Surgery
PROC: 0DTJ4ZZ Resection of Appendix, Percutaneous Endoscopic Approach (ICD-10-PCS; CPT 44970; principal; 2025-06-16 18:30)
DX: K35.33 Acute appendicitis with perforation, localized peritonitis, and gangrene, with abscess (principal); K56.609 Unspecified intestinal obstruction, unspecified as to partial versus complete obstruction; K56.7 Ileus, unspecified; I10 Essential (primary) hypertension
CPT/HCPCS: 36415; 71045; 74018; 74019; 74177; 80048; 80053; 80069; 81015; 83605; 83735; 84145; 85007; 85025; 87040; 87077; 87086; 87186; 94762; 96365; 99283; 99284; J0131; J0360; J1100; J1171; J1644; J1885; J2060; J2250; J2405; J2470; J2543; J2704; J3010; J3475; J3490; J7030; J7040; J7050; J7120; Q9967